=== PATIENT | male | born 1950 | race African-American/Black ===

== ENCOUNTER 2017-10-03 15:32 | Inpatient (IN) | payer MEDICARE, BC ==
[~2017-10-03 15:32] MED LIST: ATROPINE 0.5 MG/5 ML DISP.SYRIN.
[2017-10-03 15:58] LABS: ADD MAN DIFF? NO
[2017-10-03] MEDS ORDERED: HEPARIN 25,000UTS/500ML PREMIX 500 ML IV ×2 (15:58→16:00)
[2017-10-03] MEDS: NITROGLYCERIN PREMIX 250 ML IV (16:00)
[2017-10-03] MEDS ORDERED: NITROGLYCERIN SUBLINGUAL 0.4 MG BOTTLE OF 25. SL ×2 (16:00→18:00)
[2017-10-03] MEDS: fentaNYL PF VIAL 100 MCG/2 ML VIAL IV ×2 (16:00→16:30)
[2017-10-03] MEDS ORDERED: HEPARIN for IV BOLUS 10,000 UNIT/10 ML VIAL. IV ×2 (16:00→18:15)
[2017-10-03] MEDS: ONDANSETRON PF 4 MG/2 ML VIAL. IV (16:00)
[2017-10-03 16:03] LABS: BASO % 0 % (0-3); EOS % 0 % (0-3); HEMATOCRIT 50.7 % (39.0-53.0); HEMOGLOBIN 17.2 g/dL (13.0-17.5); LYMPH # 1.1 x10^3/uL (1.0-4.8); LYMPH % 12 % (24-48); MEAN CORPUSCULAR HEMOGLOBIN 33 pg (25-35); MEAN CORPUSCULAR HGB CONC 34 g/dL (31-37); MEAN CORPUSCULAR VOLUME 96 fL (79-100); MONO # 0.6 x10^3/uL (0.0-1.1); MONO % 7 % (0-9); NEUT # 7.6 x10^3uL (1.8-7.7); NEUT % 81 % (31-73); PLATELET COUNT 206 x10^3/uL (140-400); RED BLOOD COUNT 5.27 x10^6/uL (4.30-5.70); RED CELL DISTRIBUTION WIDTH 14.5 % (11.5-14.5); WHITE BLOOD COUNT 9.4 x10^3/uL (4.0-11.0)
[2017-10-03] MEDS: HEPARIN for IV BOLUS 10,000 UNIT/10 ML VIAL. IV ×2 (16:04→18:15)
[2017-10-03] MEDS: ASPIRIN CHEWABLE 81 MG TABLET. PO (16:04)
[2017-10-03] MEDS ORDERED: LIDOCAINE 1% Multi-Dose 20 ML VIAL. (16:06)
[2017-10-03] MEDS ORDERED: IODIXANOL 320 MG/ML 100 ML VIAL. ×2 (16:07→16:39)
[2017-10-03] MEDS ORDERED: LIDOCAINE 2% 20 ML VIAL. (16:07)
[2017-10-03 16:10] LABS: AGAP ISTAT 16 mmol/L (6-14); BUN ISTAT 15 mg/dL (8-26); CHLORIDE ISTAT 107 mmol/L (98-110); CREATININE ISTAT 1.3 mg/dL (0.5-1.4); GLUCOSE ISTAT 159 mg/dL (70-99); HEMATOCRIT ISTAT 48 % (37-52); HEMOGLOBIN ISTAT 16.3 g/dL (14-18); ION CA ISTAT 1.13 mmol/L (1.13-1.32); POTASSIUM ISTAT 4.1 mmol/L (3.5-5.0); SODIUM ISTAT 143 mmol/L (135-145); TOT CO2 ISTAT 25 mmol/L (23-32)
[2017-10-03] MEDS ORDERED: MIDAZOLAM HCL/PF 2 MG/2 ML VIAL. (16:12)
[2017-10-03] MEDS ORDERED: fentaNYL PF VIAL 100 MCG/2 ML VIAL (16:12)
[2017-10-03 16:20] LABS: ANION GAP 9 (6-14); BLOOD UREA NITROGEN 14 mg/dL (8-26); BUN/CREATININE RATIO 9 (6-20); CALCIUM 9.2 mg/dL (8.5-10.1); CARBON DIOXIDE 26 mmol/L (21-32); CHLORIDE 106 mmol/L (98-107); CREATININE 1.5 mg/dL (0.7-1.3); GFR 56.5; GLUCOSE 154 mg/dL (70-99); POTASSIUM 3.9 mmol/L (3.5-5.1); SODIUM 141 mmol/L (136-145)
[2017-10-03 16:26] LABS: ALBUMIN 3.7 g/dL (3.4-5.0); ALBUMIN/GLOBULIN RATIO 0.9 (1.0-1.7); ALK PHOS 93 U/L (46-116); ALT (SGPT) 38 U/L (16-63); AST (SGOT) 32 U/L (15-37); TOTAL BILIRUBIN 0.6 mg/dL (0.2-1.0)
[2017-10-03 16:27] LABS: TROPONINI 0.053 ng/mL (0.000-0.055)
[2017-10-03] MEDS ORDERED: BIVALIRUDIN 250 MG VIAL. IV (16:29)
[2017-10-03] MEDS: IODIXANOL 320 MG/ML 100 ML VIAL. IART (16:30)
[2017-10-03] MEDS: LIDOCAINE 2% 20 ML VIAL. IJ (16:30)
[2017-10-03] MEDS: MIDAZOLAM HCL/PF 2 MG/2 ML VIAL. IV (16:30)
[2017-10-03] MEDS: BIVALIRUDIN 250 MG VIAL. IV (16:45)
[2017-10-03] MEDS ORDERED: CONTRAST GIVEN MC (16:45)
[2017-10-03] MEDS: CLOPIDOGREL BISULFATE 75 MG TABLET PO (16:45)
[2017-10-03] MEDS ORDERED: NITROPRUSSIDE SODIUM 50 MG/2 ML VIAL IV (16:54)
[2017-10-03] MEDS: NOREPINEPHRIN PREMIX 250 ML IV (17:00)
[2017-10-03] MEDS ORDERED: HEPARIN for IV BOLUS 10,000 UNIT/10 ML VIAL. (17:04)
[2017-10-03] MEDS ORDERED: CLOPIDOGREL BISULFATE 75 MG TABLET (17:15)
[2017-10-03] MEDS: NITROPRUSSIDE 100MCG/ML SYRINGE. INT CORON (17:30)
[2017-10-03 17:37] LABS: INR 1.1 (0.8-1.1); PROTHROMBIN TIME PATIENT 13.4 SEC (11.7-14.0)
[2017-10-03 17:38] LABS: PARTIAL THROMBOPLASTIN TIME 27 SEC (24-38)
[2017-10-03] MEDS ORDERED: ACETAMINOPHEN 325 MG TABLET. PO (18:00)
[2017-10-03] MEDS: NITROGLYCERIN 200 MCG/2 ML SYRINGE FOR CATH/VASC LAB. IART (18:09)
[2017-10-03] MEDS: HEPARIN 25,000UTS/500ML PREMIX 500 ML IV (18:20)
[2017-10-03] MEDS: IV 1/2 NORMAL SALINE 1,000 ML IV (18:27)
[2017-10-03 18:59] LABS: HEMATOCRIT 50.5 % (39.0-53.0); HEMOGLOBIN 17.2 g/dL (13.0-17.5); MEAN CORPUSCULAR HEMOGLOBIN 33 pg (25-35); MEAN CORPUSCULAR HGB CONC 34 g/dL (31-37); MEAN CORPUSCULAR VOLUME 96 fL (79-100); PLATELET COUNT 190 x10^3/uL (140-400); RED BLOOD COUNT 5.24 x10^6/uL (4.30-5.70); RED CELL DISTRIBUTION WIDTH 14.5 % (11.5-14.5); WHITE BLOOD COUNT 16.1 x10^3/uL (4.0-11.0)
[2017-10-03] MEDS ORDERED: oxyCODONE/APAP 5/325 1 TAB TABLET PO ×2 (20:15)
[2017-10-03] MEDS ORDERED: NITROGLYCERIN PREMIX 250 ML IV (20:30)
[2017-10-03] MEDS: ATORVASTATIN CALCIUM 20 MG TABLET PO (21:35)
[2017-10-04 01:02] LABS: UNFRACTIONATED HEPARIN TESTING > 1.10 IU/mL (0.30-0.70)
[2017-10-04] MEDS: ONDANSETRON PF 4 MG/2 ML VIAL. IV (01:37)
[2017-10-04] MEDS: IV 1/2 NORMAL SALINE 1,000 ML IV ×2 (04:57→17:19)
[2017-10-04] MEDS: CLOPIDOGREL BISULFATE 75 MG TABLET PO (07:47)
[2017-10-04] MEDS: ASPIRIN ENTERIC COATED 325 MG TABLET.DR. PO (07:48)
[2017-10-04 08:19] LABS: HEMATOCRIT 46.1 % (39.0-53.0); HEMOGLOBIN 15.6 g/dL (13.0-17.5); MEAN CORPUSCULAR HEMOGLOBIN 33 pg (25-35); MEAN CORPUSCULAR HGB CONC 34 g/dL (31-37); MEAN CORPUSCULAR VOLUME 96 fL (79-100); PLATELET COUNT 153 x10^3/uL (140-400); RED CELL DISTRIBUTION WIDTH 14.5 % (11.5-14.5); WHITE BLOOD COUNT 11.9 x10^3/uL (4.0-11.0)
[2017-10-04 08:23] LABS: ANION GAP 9 (6-14); BLOOD UREA NITROGEN 11 mg/dL (8-26); CALCIUM 8.6 mg/dL (8.5-10.1); CARBON DIOXIDE 26 mmol/L (21-32); CHLORIDE 104 mmol/L (98-107); CREATININE 1.4 mg/dL (0.7-1.3); GFR 61.2; GLUCOSE 147 mg/dL (70-99); MAGNESIUM 1.6 mg/dL (1.8-2.4); POTASSIUM 4.1 mmol/L (3.5-5.1); SODIUM 139 mmol/L (136-145)
[2017-10-04 08:33] LABS: UNFRACTIONATED HEPARIN TESTING 0.49 IU/mL (0.30-0.70)
[2017-10-04 09:49] LABS: CHOLESTEROL 175 mg/dL (0-200); CHOLESTEROL/HDL RATIO 3.4; HDLC 51 mg/dL (40-60); LDLC 114 mg/dL (0-100); NON-HDL CHOLESTEROL 124 mg/dL (0-129); TRIGLYCERIDES 51 mg/dL (0-150); VLDLC 10 mg/dL (0-40)
[2017-10-04] MEDS: MAGNESIUM SULFATE 2GM 50 ML IV (10:09)
[2017-10-04] MEDS: FLU VACC QS2017-18 (36MOS+)/PF 0.5 ML SYRINGE. VAX IM (12:36)
[2017-10-04] MEDS: PNEUMOC CONJ VACC 23-VALENT 0.5 ML VIAL. VAX IM (13:07)
[2017-10-04 15:04] LABS: UNFRACTIONATED HEPARIN TESTING 0.31 IU/mL (0.30-0.70)
[2017-10-04 16:19] LABS: MRSA BY PCR Negative (Negative)
[2017-10-04] MEDS: HEPARIN 25,000UTS/500ML PREMIX 500 ML IV (17:18)
[2017-10-04] MEDS: ATORVASTATIN CALCIUM 20 MG TABLET PO (21:04)
[2017-10-05 06:32] LABS: HEMATOCRIT 45.4 % (39.0-53.0); HEMOGLOBIN 15.2 g/dL (13.0-17.5); MEAN CORPUSCULAR HEMOGLOBIN 32 pg (25-35); MEAN CORPUSCULAR HGB CONC 34 g/dL (31-37); MEAN CORPUSCULAR VOLUME 97 fL (79-100); PLATELET COUNT 131 x10^3/uL (140-400); RED CELL DISTRIBUTION WIDTH 14.3 % (11.5-14.5); WHITE BLOOD COUNT 9.7 x10^3/uL (4.0-11.0)
[2017-10-05 06:42] LABS: ANION GAP 7 (6-14); BLOOD UREA NITROGEN 9 mg/dL (8-26); CALCIUM 8.6 mg/dL (8.5-10.1); CARBON DIOXIDE 26 mmol/L (21-32); CHLORIDE 106 mmol/L (98-107); CREATININE 1.2 mg/dL (0.7-1.3); GFR 73.1; GLUCOSE 121 mg/dL (70-99); MAGNESIUM 2.1 mg/dL (1.8-2.4); POTASSIUM 3.8 mmol/L (3.5-5.1); SODIUM 139 mmol/L (136-145)
[2017-10-05 07:13] LABS: TROPONIN BY ISTAT 0.03 ng/ml (<0.08)
[2017-10-05] MEDS ORDERED: LIDOCAINE 2% 20 ML VIAL. (07:33)
[2017-10-05] MEDS ORDERED: IODIXANOL 320 MG/ML 100 ML VIAL. (07:33)
[2017-10-05] MEDS: ASPIRIN ENTERIC COATED 325 MG TABLET.DR. PO (08:27)
[2017-10-05] MEDS: CLOPIDOGREL BISULFATE 75 MG TABLET PO (08:27)
[2017-10-05] MEDS: IV 1/2 NORMAL SALINE 1,000 ML IV ×3 (08:44→23:11)
[2017-10-05] MEDS ORDERED: INFLUENZA VAX SCREEN BY RX. MC (09:00)
[2017-10-05] MEDS ORDERED: PNEUMOCOCCAL VAX SCREEN BY RX. MC (09:00)
[2017-10-05] MEDS: ANTI-COAG MONITOR BY PHARMACY. MC (09:52)
[2017-10-05] MEDS ORDERED: MIDAZOLAM HCL/PF 2 MG/2 ML VIAL. (11:11)
[2017-10-05] MEDS ORDERED: BIVALIRUDIN 250 MG VIAL. IV (11:12)
[2017-10-05] MEDS: MIDAZOLAM HCL/PF 2 MG/2 ML VIAL. IV (11:15)
[2017-10-05] MEDS: IODIXANOL 320 MG/ML 100 ML VIAL. IART (11:15)
[2017-10-05] MEDS: BIVALIRUDIN 250 MG VIAL. IV (11:15)
[2017-10-05] MEDS: fentaNYL PF VIAL 100 MCG/2 ML VIAL IV (11:15)
[2017-10-05] MEDS: LIDOCAINE 2% 20 ML VIAL. IJ (11:15)
[2017-10-05] MEDS ORDERED: ACETAMINOPHEN 325 MG TABLET. PO (13:15)
[2017-10-05] MEDS ORDERED: NITROGLYCERIN SUBLINGUAL 0.4 MG BOTTLE OF 25. SL (13:15)
[2017-10-05] MEDS: ATORVASTATIN CALCIUM 20 MG TABLET PO (21:06)
[2017-10-06] MEDS: IV 1/2 NORMAL SALINE 1,000 ML IV (02:21)
[2017-10-06 08:42] LABS: HEMATOCRIT 42.6 % (39.0-53.0); HEMOGLOBIN 14.4 g/dL (13.0-17.5); MEAN CORPUSCULAR HEMOGLOBIN 32 pg (25-35); MEAN CORPUSCULAR HGB CONC 34 g/dL (31-37); MEAN CORPUSCULAR VOLUME 96 fL (79-100); PLATELET COUNT 114 x10^3/uL (140-400); RED BLOOD COUNT 4.45 x10^6/uL (4.30-5.70); RED CELL DISTRIBUTION WIDTH 14.4 % (11.5-14.5); WHITE BLOOD COUNT 9.1 x10^3/uL (4.0-11.0)
[2017-10-06] MEDS: METOPROLOL SUCC 24HR ER 25 MG TAB.ER.24H. PO (09:00)
[2017-10-06] MEDS: ASPIRIN ENTERIC COATED 325 MG TABLET.DR. PO (09:17)
[2017-10-06] MEDS: CLOPIDOGREL BISULFATE 75 MG TABLET PO (09:17)
[2017-10-06 10:55] LABS: ANION GAP 8 (6-14); BLOOD UREA NITROGEN 9 mg/dL (8-26); CALCIUM 8.5 mg/dL (8.5-10.1); CARBON DIOXIDE 26 mmol/L (21-32); CHLORIDE 106 mmol/L (98-107); CREATININE 1.3 mg/dL (0.7-1.3); GFR 66.6; GLUCOSE 111 mg/dL (70-99); POTASSIUM 3.9 mmol/L (3.5-5.1); SODIUM 140 mmol/L (136-145)
[2017-10-06 11:43] LABS: MAGNESIUM 2.2 mg/dL (1.8-2.4)
[2017-10-06] MEDS: ATORVASTATIN CALCIUM 20 MG TABLET PO (20:27)
[2017-10-07 05:42] LABS: HEMATOCRIT 40.3 % (39.0-53.0); HEMOGLOBIN 13.9 g/dL (13.0-17.5); MEAN CORPUSCULAR HEMOGLOBIN 33 pg (25-35); MEAN CORPUSCULAR HGB CONC 35 g/dL (31-37); MEAN CORPUSCULAR VOLUME 96 fL (79-100); PLATELET COUNT 120 x10^3/uL (140-400); RED BLOOD COUNT 4.22 x10^6/uL (4.30-5.70); RED CELL DISTRIBUTION WIDTH 14.2 % (11.5-14.5); WHITE BLOOD COUNT 8.2 x10^3/uL (4.0-11.0)
[2017-10-07 06:24] LABS: ALBUMIN 2.7 g/dL (3.4-5.0); ALBUMIN/GLOBULIN RATIO 0.7 (1.0-1.7); ALK PHOS 68 U/L (46-116); ALT (SGPT) 35 U/L (16-63); ANION GAP 8 (6-14); AST (SGOT) 80 U/L (15-37); BLOOD UREA NITROGEN 13 mg/dL (8-26); BUN/CREATININE RATIO 11 (6-20); CALCIUM 8.4 mg/dL (8.5-10.1); CARBON DIOXIDE 24 mmol/L (21-32); CHLORIDE 108 mmol/L (98-107); CREATININE 1.2 mg/dL (0.7-1.3); GFR 73.1; GLUCOSE 96 mg/dL (70-99); POTASSIUM 3.9 mmol/L (3.5-5.1); SODIUM 140 mmol/L (136-145); TOTAL BILIRUBIN 1.2 mg/dL (0.2-1.0); TOTAL PROTEIN 6.4 g/dL (6.4-8.2)
[2017-10-07] MEDS: CLOPIDOGREL BISULFATE 75 MG TABLET PO (08:50)
[2017-10-07] MEDS: ASPIRIN ENTERIC COATED 325 MG TABLET.DR. PO (08:50)
[2017-10-09 00:10] LABS: HCV ANTIBODY 0.1 s/co ratio (0.0-0.9); HEP A IGM ABDY Negative (Negative); HEP B SURFACE AG Negative (Negative)
== END 2017-10-07 14:41 | disposition home or self-care (01) | DRG 270 ==
LOC: 2 SOUTH 10-06 12:05 → ER 15:32 → 1 WEST ICU 16:00
PROC: 027035Z Dilation of Coronary Artery, One Artery with Two Drug-eluting Intraluminal Devices, Percutaneous Approach (ICD-10-PCS; principal; 2017-10-03)
PROC: 5A02210 Assistance with Cardiac Output using Balloon Pump, Continuous (ICD-10-PCS; 2017-10-03)
PROC: 4A023N7 Measurement of Cardiac Sampling and Pressure, Left Heart, Percutaneous Approach (ICD-10-PCS; 2017-10-03)
PROC: B2111ZZ Fluoroscopy of Multiple Coronary Arteries using Low Osmolar Contrast (ICD-10-PCS; 2017-10-03)
PROC: 027034Z Dilation of Coronary Artery, One Artery with Drug-eluting Intraluminal Device, Percutaneous Approach (ICD-10-PCS; 2017-10-03)
DX: I21.19 ST elevation (STEMI) myocardial infarction involving other coronary artery of inferior wall (principal); R57.0 Cardiogenic shock; D69.59 Other secondary thrombocytopenia; E78.00 Pure hypercholesterolemia, unspecified; E78.5 Hyperlipidemia, unspecified; E83.42 Hypomagnesemia; I10 Essential (primary) hypertension; I25.10 Atherosclerotic heart disease of native coronary artery without angina pectoris; I49.3 Ventricular premature depolarization; M19.90 Unspecified osteoarthritis, unspecified site; Z82.49 Family history of ischemic heart disease and other diseases of the circulatory system; Z95.5 Presence of coronary angioplasty implant and graft; Z98.49 Cataract extraction status, unspecified eye
CPT/HCPCS: 33967; 33968; 36415; 71045; 76700; 80047; 80048; 80053; 80061; 80074; 83735; 84132; 84484; 85025; 85027; 85520; 85610; 85730; 87641; 90686; 90732; 92928; 92941; 93005; 93306; 93454; 93571; 99152; 99153; 99285; 99285-25; C1713; C1725; C1769; C1771; C1874; C1887; C1892; G0269; J0461; J0583; J1265; J1644; J2250; J2405; J3010; J3475; J3490

== ENCOUNTER → 2019-09-02 | Outpatient (CLI) | payer MEDICARE, BC ==
[2017-10-07 11:31] VITALS: BP 104/71
[~2019-09-02] MED LIST changes: +ASPI-482 PO; +ATOR20TA58 PO; -ATROPINE 0.5 MG/5 ML DISP.SYRIN.; +CLOP75TA PO; +REGADENOSON 0.4 MG/5 ML DISP.SYRIN. IV ONE
--- NOTE | 2019-09-02 12:09 | RAD ---
MR#: [id number] Date of Study: 09/02/2019 Ordering Physician: ZANDRA GRIDER, Referring Physician: RAGHU BALDERAS Tech: RT Cj Huber) (N) APPROVED REPORT Test Type: Pharmacological Stress Nurse/Tech: Sharmila Modi RN Test Indications: CAD Cardiac History: Hypertension,2 stents about 4 years ago Medications: See Electronic Medical Record Medical History: See Electronic Medical Record Resting ECG: SR with PVCs and PACs Resting Heart Rate: 70 bpm Resting Blood Pressure: 136/92mmHg Pretest Chest Pain: No chest pain Nurse/Tech Notes S1,S2 and lungs clear to auscultation. Consent: The procedure was explained to the patient in lay terms. Informed consent was witnessed. Abdulkadir eout was entered into [employer]. History and Stress Test performed by RT Cj Huber) (N) Pharm. Details Pharmacologic stress testing was performed using 0.4mg per 5ml of regadenoson given intravenously ove r 7-10 seconds. Stress Symptoms No chest pain or symptoms. POST EXERCISE Reason for Termination: Infusion complete Target HR: No Max HR: 103 bpm Max Blood Pressure: 152/83mmHg Blood Pressure response to exercise: Normal blood pressure response during stress. Heart Rate response to exercise: WNL Chest Pain: No. Arrhythmia: Yes. PVCs and PACs ST Change: No. INTERPRETATION Stress EKG Conclusion: Baseline EKG showed sinus rhythm. Non-diagnostic changes at peak stress. No arrhythmias. Imaging Protocol IMAGE PROTOCOL: Rest Tc-99m/stress Tc-99m 1 day Rest: Stress: Viability: Radiopharm.Tc99m [id number] Sestamibi Dose10.5mCi 32mCi Duration 15min. 10min. Img Date 09/02/2019 09/02/2019 Inj-Img [id number]. 60min. Rest Admin Site:IV - Right AntecubitalAdministrator:ERIC Salmeron (Ashtyn)(N) Stress Admin Site: IV - Right AntecubitalAdministrator: RT Cj Huber)(N) STRESS DATA End Diast. Vol.91.0mlAv. Heart Rate79.0bpm End Syst. Vol.26.0mlCO Index BSA0.0L/min Myocardial Nqul078.0gEject. Hdiqrath29.0% Stress Rates Pk. Fill Rate2.65EDV/secLVtime Pk. Fill 147.81msec Pk. Empty Rate4.19ESV/secLVtime Pk. Cxpnz500.03msec 1/3 Pk. Fill1.47EDV/sec Stress Scores Regional WT2.00Summed WT6.00 Regional WM0.00Summed WM1.00 LV Perfusion Scintigraphic images showed small fixed defect involving the anterior wall consistent with previous m yocardial infarction without any reversibility. Wall Motion Normal left ventricle systolic function with ejection fraction At 71%. LV Perf. Quant 17 Seg. SSS2.00 17 Seg. SRS12.00 17 Seg. SDS0.00 Stress Defect Extent (% LAD)18.80Rest Defect Extent (% LAD)38.10Rev. Defect Extent (% LAD)0.00 Stress Defect Extent (% LCX) 0.00Rest Defect Extent (% LCX)0.00Rev. Defect Extent (% LCX)0.00 Stress Defect Extent (% RCA)0.00Rest Defect Extent (% RCA)34.40Rev. Defect Extent (% RCA)0.00 Stress Defect Extent (% CANDIE)7.00Rest Defect Extent (% CANDIE)24.10Rev. Defect Extent (% CANDIE)0.00 Conclusion 1. Regadenoson cardioisotope stress test showed small anterior wall infarct without any ischemia. 2. Normal left ventricular systolic function with ejection fraction calculated at 71%. 3. Low risk for cardiac events. Signed by : Ramirez Dash, Electronically Approved : 09/02/2019 12:08:37
== END | disposition home or self-care (01) ==
LOC: NM 08:53
PROVIDERS: ATTEND Nurse Practitioner Gerontology
DX: Z03.89 Encounter for observation for other suspected diseases and conditions ruled out (principal); I21.09 ST elevation (STEMI) myocardial infarction involving other coronary artery of anterior wall
CPT/HCPCS: 78452; 93017; A9500; J2785

== ENCOUNTER 2020-04-12 09:52 | Inpatient (IN) | payer MEDICARE, BC ==
[~2020-04-12] VITALS: Ht 190.5 cm; Wt 84.3 kg
[2020-04-12] VITALS (13 sets, daily range): BP systolic 90–109; BP diastolic 70–84
[~2020-04-12 09:52] MED LIST changes: -REGADENOSON 0.4 MG/5 ML DISP.SYRIN. IV ONE
[2020-04-12] MEDS ORDERED: HEPARIN for IV BOLUS 10,000 UNIT/10 ML VIAL. ONE ×2 (10:15→11:56)
[2020-04-12] MEDS ORDERED: HEPARIN for IV BOLUS 10,000 UNIT/10 ML VIAL. IV ONE (10:15)
[2020-04-12] MEDS ORDERED: ASPIRIN 325 MG TABLET PO ONE (10:15)
[2020-04-12 10:18] LABS: BASO % 0 % (0-3); EOS % 0 % (0-3); HEMATOCRIT 49.3 % (39.0-53.0); HEMOGLOBIN 16.7 g/dL (13.0-17.5); LYMPH # 0.7 x10^3/uL (1.0-4.8); LYMPH % 5 % (24-48); MEAN CORPUSCULAR HEMOGLOBIN 33 pg (25-35); MEAN CORPUSCULAR HGB CONC 34 g/dL (31-37); MEAN CORPUSCULAR VOLUME 96 fL (79-100); MONO # 1.5 x10^3/uL (0.0-1.1); MONO % 11 % (0-9); NEUT # 11.3 x10^3/uL (1.8-7.7); NEUT % 84 % (31-73); PLATELET COUNT 149 x10^3/uL (140-400); RED BLOOD COUNT 5.13 x10^6/uL (4.30-5.70); RED CELL DISTRIBUTION WIDTH 14.8 % (11.5-14.5); WHITE BLOOD COUNT 13.5 x10^3/uL (4.0-11.0)
--- NOTE | 2020-04-12 10:18 | PHYS DOC ---
Past Medical History Past Medical History: CAD, High Cholesterol, Hypertension, NC Past Surgical History: Other Additional Past Surgical Histo: cardiac stents Smoking Status: Never Smoker Alcohol Use: None Drug Use: None General Adult EDM: Chief Complaint: CHEST PAIN HPI: HPI: Patient is a 69-year-old male presenting with abrupt left-sided chest pain that started at 11:00 yesterday while mowing his lawn. Patient has a history of hypertension, CAD, hyperlipidemia, and has had 2 coronary artery stents placed in the past. Patient describes the pain as nagging but is mild in nature compared to his initial pain yesterday, the pain radiates into the left shoulder and worse with exertion.. Patient denies any loss of consciousness, abdominal pain, headache, blurry vision, muscle weakness, or sensory changes. Patient denies current tobacco or alcohol use. Denies trauma. Review of Systems: Review of Systems: Constitutional: Denies fever or chills Eyes: Denies redness or eye pain HENT: Denies nasal congestion or sore throat Respiratory: Denies cough or shortness of breath Cardiovascular: Endorses chest pain, denies palpitations GI: Denies abdominal pain, nausea, or vomiting : Denies dysuria or hematuria Musculoskeletal: Denies back pain; reports left shoulder pain Integument: Denies rash or skin lesions; reports diaphoresis with chest pain Neurologic: Denies headache, focal weakness or sensory changes Complete systems were reviewed and found to be within normal limits, except as documented in this note. Heart Score: HEART Score for Chest Pain: HEART Score for Chest Pain Response (Comments) Value History Highly Suspicious 2 ECG Nonspecific Repolarizatio 1 Age > 65 2 Risk Factors >3 Risk Factors or Hx CAD 2 Troponin >3 x Normal Limit 2 Total 9 Risk Factors: Risk Factors: DM, Current or recent (<one month) smoker, HTN, HLP, family history of CAD, obesity. Risk Scores: Score 0 - 3: 2.5% MACE over next 6 weeks - Discharge Home Score 4 - 6: 20.3% MACE over next 6 weeks - Admit for Clinical Observation Score 7 - 10: 72.7% MACE over next 6 weeks - Early Invasive Strategies Current Medications: Current Medications Medications (Trade) Dose Ordered Sig/Torsten Start Time Stop Time Status Last Admin Dose Admin Aspirin (Denisse Aspirin) 325 mg 1X ONCE 04/12/20 10:15 04/12/20 10:16 Heparin Sodium (Porcine) (Heparin Sodium) 10,000 unit STK-MED ONCE 04/12/20 10:15 04/12/20 10:15 DC Allergies: Allergies: Allergies Coded Allergies Type Severity Reaction Last Updated Verified No Known Drug Allergies 05/06/14 No Physical Exam: PE: Constitutional: Well developed, well nourished, no acute distress, non-toxic appearance HENT: Normocephalic, atraumatic Eyes: Conjunctiva normal, no discharge, left eye corneal opacity Neck: Normal range of motion, no tenderness, supple Lungs & Thorax: Bilateral breath sounds clear to auscultation, no wheezing Cardiovascular: Normal rate, regular rhythm, no murmurs, +2 pulses in upper and lower extremities Abdomen: Soft, no tenderness Skin: Warm, dry, no erythema, no rash Back: No tenderness, no CVA tenderness Extremities: No tenderness, ROM intact, no edema Neurologic: Alert and oriented X 3, no focal deficits noted Psychologic: Affect normal, judgment normal Current Patient Data: Vital Signs: Vital Signs Date Time Temp Pulse Resp B/P (MAP) Pulse Ox O2 Delivery O2 Flow Rate FiO2 04/12/20 09:59 99.1 88 16 121/98 (106) 97 Room Air 99.1 EKG: EKG: @1000 NSR at 95bpm, minimal ST elevation to V2-V4 without reciprocal depression, QRS 80ms, QT/QTc 324/410ms, compared to prior EKG per [employer] review from 10/03/17 with significant change from prior concerning for ischemic event Radiology/Procedures: Radiology/Procedures: PROCEDURE: CHEST AP ONLY CHEST AP ONLY History: Chest pain Comparison: 10/03/2017 Findings: Single view of the chest is submitted. There is no infiltrate, pneumothorax, or effusion. The pericardial cardiac silhouette is within normal limits in size. Impression: 1. There is no radiographic evidence of acute cardiopulmonary disease. Electronically signed by: Enmanuel Noonan MD (04/12/2020 11:20 AM) [id number] Course & Med Decision Making: Course & Med Decision Making Pertinent Labs and Imaging studies reviewed. (See chart for details) Patient with significant cardiac risk factors presents with report of chest pain with diaphoresis and radiation to left shoulder that started yesterday with exertion. Patient presents today because he still has a "nagging "sensation. Denies actual pain at this time. EKG with some mild ST elevations noted in V1 through V4 without reciprocal depressions. Compared to prior EKG with significant change. Concern for ischemic changes. Aspirin provided. Discussed EKGs with Dr. Dash (cardiology) who reports will plan for cardiac cath today for further evaluation given EKG changes. Labs obtained and posted to chart. Troponin significantly elevated. CXR without acute process. Patient requiring admission for further evaluation and treatment. Discussed with Dr. Mckeon (hospitalist) who is in agreement with admission. Discussed findings and plan with patient and family, who acknowledge understanding and agreement. Dragon Disclaimer: Dragon Disclaimer: This electronic medical record was generated, in whole or in part, using a voice recognition dictation system. Departure Departure Impression: Primary Impression: NSTEMI (non-ST elevated myocardial infarction) Disposition: 09 ADMITTED INPATIENT Admitting Physician: IWONA (Linda) Condition: GUARDED Referrals: ZANDRA GRIDER APRN (PCP) Justicifation of Admission Dx: Justifications for Admission: Justification of Admission Dx: Yes NC: Acute NSTEMI Critical Care Time Critical care time was 30 minutes which includes time at bedside, spent in discussion of patient's care with specialists and/or family members, with interpretation of laboratory and/or radiological studies and is exclusive of procedures. LARON LOPEZ DO Apr 12, 2020 10:18
[2020-04-12 10:56] LABS: PROTHROMBIN TIME PATIENT 15.6 SEC (11.7-14.0)
[2020-04-12 11:08] LABS: CALCIUM 8.9 mg/dL (8.5-10.1); CREATININE 1.3 mg/dL (0.7-1.3); GFR 66.2; POTASSIUM 4.1 mmol/L (3.5-5.1)
[2020-04-12 11:19] LABS: ALBUMIN 3.8 g/dL (3.4-5.0); TOTAL BILIRUBIN 1.7 mg/dL (0.2-1.0); TOTAL PROTEIN 7.8 g/dL (6.4-8.2)
--- NOTE | 2020-04-12 11:23 | RAD ---
CHEST AP ONLY History: Chest pain Comparison: 10/03/2017 Findings: Single view of the chest is submitted. There is no infiltrate, pneumothorax, or effusion. The pericardial cardiac silhouette is within normal limits in size. Impression: 1. There is no radiographic evidence of acute cardiopulmonary disease. Electronically signed by: Enmanuel Noonan MD (04/12/2020 11:20 AM) [id number]
[2020-04-12] MEDS ORDERED: fentaNYL PF VIAL 100 MCG/2 ML VIAL IV ONE ×2 (11:30→12:30)
[2020-04-12] MEDS ORDERED: IODIXANOL 320 MG/ML 100 ML VIAL. ONE ×2 (11:33→12:51)
[2020-04-12] MEDS ORDERED: LIDOCAINE 1% PF 2 ML VIAL. ONE (11:34)
[2020-04-12] MEDS ORDERED: HEPARIN for ARTERIAL LINE 0 ML ONE (11:34)
--- NOTE | 2020-04-12 11:54 | PDOC ---
MODERATE SEDATION ASSESSMENT RISKS/ALTERNATIVES Risks/Alternatives Risks and alternatives of this type of sedation and procedure discussed with: RISK/ALTERNATIVES: Patient H & P ON CHART H & P H & P on chart and reviewed for co-morbid conditions and appropriate labs. H&P ON CHART: Yes STATUS PREG STATUS ASSESSED: N/A MEDS/ALLERGIES REVIEWED Meds/Allergies Reviewed Medications and Allergies including time and route of recently administered narcotics and sedatives. MEDS/ALLERGIES REVIEWED: Yes ASA RATING ASA RATING: III AIRWAY ASSESSMENT Airway Assessment Airway patency, oral function limitations, presence of caps, crowns, dentures, partials, and ability to extend neck assessed. AIRWAY ASSESSMENT: Yes MALLAMPATI SCORE MALLAMPATI SCORE: II PRE-SEDATION ASSESSMENT PRE-SEDATION ASSESSMENT: Yes GELA CRUZ MD Apr 12, 2020 11:54
[2020-04-12] MEDS ORDERED: fentaNYL PF VIAL 100 MCG/2 ML VIAL ONE (11:55)
--- NOTE | 2020-04-12 11:55 | PDOC2 ---
CONSULT Date of Consult Date of Consult DATE: 04/12/20 TIME: 11:54 Reason for Consult Reason for Consult: Acute myocardial infarction Referring Physician Referring Physician: Dr. Sharif Identification/Chief Complaint Chief Complaint Chest pain Source Source: Chart review, Patient History of Present Illness Reason for Visit: 69-year-old male with history of coronary disease s/p PCI/BENITA to LAD and RCA in 2018 without regular cardiology follow-up since then apparently was moaning his lawn yesterday when he started having retrosternal chest discomfort associated with diaphoresis. He came back inside the house to rest and the pain got better. Throughout the evening his pain waxed and waned, however he did not present to ED till this morning. He stated the chest pain resolved but he continues to have left shoulder pain worse with exertion. He denied any orthopnea/PND, palpitations or syncope. Past Medical History Cardiovascular: HTN, Hyperlipidemia Pulmonary: No pertinent hx GI: No pertinent hx Heme/Onc: No pertinent hx Hepatobiliary: No pertinent hx Psych: No pertinent hx Musculoskeletal: Osteoarthritis Rheumatologic: No pertinent hx Infectious disease: No pertinent hx Renal/: No pertinent hx Endocrine: No pertinent hx Past Surgical History Past Surgical History: Cataract Removal, Tonsillectomy, Other Family History Family History: Hypertension Social History ALCOHOL: none Drugs: None Current Problem List Problem List Problems Medical Problems: (1) NSTEMI (non-ST elevated myocardial infarction) Status: Acute Current Medications Current Medications Current Medications Aspirin (Denisse Aspirin) 325 mg 1X ONCE PO Last administered on 04/12/20at 10:16; Start 04/12/20 at 10:15; Stop 04/12/20 at 10:16; Status DC Heparin Sodium (Porcine) (Heparin Sodium) 4,000 unit 1X ONCE IV Last admini stered on 04/12/20at 10:19; Start 04/12/20 at 10:15; Stop 04/12/20 at 10:19; Status DC Heparin Sodium (Porcine) (Heparin Sodium) 10,000 unit STK-MED ONCE .ROUTE ; Start 04/12/20 at 10:15; Stop 04/12/20 at 10:15; Status DC Fentanyl Citrate (Fentanyl 2ml Vial) 50 mcg 1X ONCE IV ; Start 04/12/20 at 11:30; Stop 04/12/20 at 11:31; Status DC Iodixanol (Visipaque 320) 100 ml STK-MED ONCE .ROUTE ; Start 04/12/20 at 11:33; Stop 04/12/20 at 11:34; Status DC Lidocaine HCl (Xylocaine-Mpf 1% 2ml Vial) 2 ml STK-MED ONCE .ROUTE ; Start 04/12/20 at 11:34; Stop 04/12/20 at 11:34; Status DC Heparin Sodium/ Sodium Chloride 0 ml @ As Directed STK-MED ONCE .ROUTE ; Start 04/12/20 at 11:34; Stop 04/12/20 at 11:34; Status DC Ondansetron HCl (Zofran) 4 mg PRN Q8HRS PRN IV NAUSEA/VOMITING; Start 04/12/20 at 12:00; Stop 04/13/20 at 11:59 Fentanyl Citrate (Fentanyl 2ml Vial) 50 mcg Q2HR PRN IV PAIN; Start 04/12/20 at 12:00; Stop 04/13/20 at 11:59 Active Scripts Active Aspir 81 (Aspirin) 81 Mg Tablet.dr 1 Tab PO DAILY Clopidogrel (Clopidogrel Bisulfate) 75 Mg Tablet 75 Mg PO [id number] 30 Days Atorvastatin Calcium 20 Mg Tablet 20 Mg PO QHS 30 Days Allergies Allergies: Coded Allergies: No Known Drug Allergies (Unverified , 05/06/14) ROS PSYCHOLOGICAL ROS: No: Hallucinations Eyes: No Loss of vision HEENT: No: Epistaxis Respiratory: No: Hemoptysis, Shortness of breath Cardiovascular: yes Chest Pain Gastrointestinal: No Vomiting Genitourinary: No Hematuria Neurological: No Seizures Skin: No Rash Physical Exam General: Alert, No acute distress HEENT: Atraumatic Lungs: Clear to auscultation Heart: Regular rate Abdomen: Soft Extremities: No edema Neuro: Normal speech Psych/Mental Status: Mood NL Vitals VITALS Vital Signs Date Time Temp Pulse Resp B/P (MAP) Pulse Ox O2 Delivery O2 Flow Rate FiO2 04/12/20 09:59 99.1 88 16 121/98 (106) 97 Room Air 99.1 Labs Labs Laboratory Tests Test 04/12/20 10:08 04/12/20 10:30 White Blood Count 13.5 x10^3/uL (4.0-11.0) Red Blood Count 5.13 x10^6/uL (4.30-5.70) Hemoglobin 16.7 g/dL (13.0-17.5) Hematocrit 49.3 % (39.0-53.0) Mean Corpuscular Volume 96 fL (79-100) Mean Corpuscular Hemoglobin 33 pg (25-35) Mean Corpuscular Hemoglobin Concent 34 g/dL (31-37) Red Cell Distribution Width 14.8 % (11.5-14.5) Platelet Count 149 x10^3/uL (140-400) Neutrophils (%) (Auto) 84 % (31-73) Lymphocytes (%) (Auto) 5 % (24-48) Monocytes (%) (Auto) 11 % (0-9) Eosinophils (%) (Auto) 0 % (0-3) Basophils (%) (Auto) 0 % (0-3) Neutrophils # (Auto) 11.3 x10^3/uL (1.8-7.7) Lymphocytes # (Auto) 0.7 x10^3/uL (1.0-4.8) Monocytes # (Auto) 1.5 x10^3/uL (0.0-1.1) Eosinophils # (Auto) 0.0 x10^3/uL (0.0-0.7) Basophils # (Auto) 0.0 x10^3/uL (0.0-0.2) Prothrombin Time 15.6 SEC (11.7-14.0) Prothromb Time International Ratio 1.3 (0.8-1.1) Activated Partial Thromboplast Time 131 SEC (24-38) Sodium Level 138 mmol/L (136-145) Potassium Level 4.1 mmol/L (3.5-5.1) Chloride Level 104 mmol/L (98-107) Carbon Dioxide Level 25 mmol/L (21-32) Anion Gap 9 (6-14) Blood Urea Nitrogen 12 mg/dL (8-26) Creatinine 1.3 mg/dL (0.7-1.3) Estimated GFR (Cockcroft-Gault) 66.2 BUN/Creatinine Ratio 9 (6-20) Glucose Level 129 mg/dL (70-99) Calcium Level 8.9 mg/dL (8.5-10.1) Magnesium Level 2.0 mg/dL (1.8-2.4) Total Bilirubin 1.7 mg/dL (0.2-1.0) Aspartate Amino Transf (AST/SGOT) 890 U/L (15-37) Alanine Aminotransferase (ALT/SGPT) 80 U/L (16-63) Alkaline Phosphatase 97 U/L (46-116) Troponin I Quantitative 193.780 ng/mL (0.000-0.055) EA-Vrp-J-Type Natriuretic Peptide 3192 pg/mL (0-124) Total Protein 7.8 g/dL (6.4-8.2) Albumin 3.8 g/dL (3.4-5.0) Albumin/Globulin Ratio 1.0 (1.0-1.7) Lipase 43 U/L (73-393) Laboratory Tests Test 04/12/20 10:08 04/12/20 10:30 White Blood Count 13.5 x10^3/uL (4.0-11.0) Red Blood Count 5.13 x10^6/uL (4.30-5.70) Hemoglobin 16.7 g/dL (13.0-17.5) Hematocrit 49.3 % (39.0-53.0) Mean Corpuscular Volume 96 fL (79-100) Mean Corpuscular Hemoglobin 33 pg (25-35) Mean Corpuscular Hemoglobin Concent 34 g/dL (31-37) Red Cell Distribution Width 14.8 % (11.5-14.5) Platelet Count 149 x10^3/uL (140-400) Neutrophils (%) (Auto) 84 % (31-73) Lymphocytes (%) (Auto) 5 % (24-48) Monocytes (%) (Auto) 11 % (0-9) Eosinophils (%) (Auto) 0 % (0-3) Basophils (%) (Auto) 0 % (0-3) Neutrophils # (Auto) 11.3 x10^3/uL (1.8-7.7) Lymphocytes # (Auto) 0.7 x10^3/uL (1.0-4.8) Monocytes # (Auto) 1.5 x10^3/uL (0.0-1.1) Eosinophils # (Auto) 0.0 x10^3/uL (0.0-0.7) Basophils # (Auto) 0.0 x10^3/uL (0.0-0.2) Prothrombin Time 15.6 SEC (11.7-14.0) Prothromb Time International Ratio 1.3 (0.8-1.1) Activated Partial Thromboplast Time 131 SEC (24-38) Sodium Level 138 mmol/L (136-145) Potassium Level 4.1 mmol/L (3.5-5.1) Chloride Level 104 mmol/L (98-107) Carbon Dioxide Level 25 mmol/L (21-32) Anion Gap 9 (6-14) Blood Urea Nitrogen 12 mg/dL (8-26) Creatinine 1.3 mg/dL (0.7-1.3) Estimated GFR (Cockcroft-Gault) 66.2 BUN/Creatinine Ratio 9 (6-20) Glucose Level 129 mg/dL (70-99) Calcium Level 8.9 mg/dL (8.5-10.1) Magnesium Level 2.0 mg/dL (1.8-2.4) Total Bilirubin 1.7 mg/dL (0.2-1.0) Aspartate Amino Transf (AST/SGOT) 890 U/L (15-37) Alanine Aminotransferase (ALT/SGPT) 80 U/L (16-63) Alkaline Phosphatase 97 U/L (46-116) Troponin I Quantitative 193.780 ng/mL (0.000-0.055) FO-Rqw-L-Type Natriuretic Peptide 3192 pg/mL (0-124) Total Protein 7.8 g/dL (6.4-8.2) Albumin 3.8 g/dL (3.4-5.0) Albumin/Globulin Ratio 1.0 (1.0-1.7) Lipase 43 U/L (73-393) Assessment/Plan Assessment/Plan 1. Non-STEMI in a patient with known history of coronary disease s/p PCI/BENITA to LAD and RCA in the past. He is currently chest pain-free but he complained of left shoulder pain that could be anginal equivalent since this is worse with exertion. EKG showed Q waves anterior leads possibly from completed infarct. Troponin level significantly elevated. We will proceed with emergent cardiac catheterization and possible angioplasty. Risks and benefits were explained and he is agreeable. 2. Hypertension: Controlled 3. Hyperlipidemia: Continue statin therapy Thank you for your consultation GELA CRUZ MD Apr 12, 2020 11:55
[2020-04-12] MEDS ORDERED: VERAPAMIL 5 MG/2 ML VIAL. ONE (11:56)
[2020-04-12] MEDS ORDERED: MIDAZOLAM HCL/PF 2 MG/2 ML VIAL. ONE (11:56)
[2020-04-12] MEDS ORDERED: NITROGLYCERIN 200 MCG/2 ML SYRINGE FOR CATH/VASC LAB. ONE ×2 (11:58→13:01)
[2020-04-12] MEDS ORDERED: ONDANSETRON PF 4 MG/2 ML VIAL. IV PRN (12:00)
[2020-04-12] MEDS ORDERED: fentaNYL PF VIAL 100 MCG/2 ML VIAL IV PRN (12:00)
--- NOTE | 2020-04-12 12:00 | PDOC1 ---
History and Physical Date of Admission Date of Admission DATE: 04/12/20 TIME: 12:00 Identification/Chief Complaint Chief Complaint Chest pain Source Source: Patient History of Present Illness History of Present Illness Mr Goodrich is a 69yo M w/ PMHx of CAD s/p BENITA x2 2018, HLD, HTN who presents to ED c/o chest pain that has been intermittent over the past 24 hours prior to presentation. After mowing his lawn at approximately 11:00am on 04/11/2020 he noted sudden substernal sharp chest pain 03/22 that radiated to his back. He had associated diaphoresis and nausea which initially improved with rest. The pain has returned intermittently in a dull fashion since then every few hours and he awoke today with the same pain. He does not smoke or drink alcohol. CXR in ED showed no acute abnormalities. EKG concerning for ST elevations in V2, V3, and V4. Troponin 193. AST notably 890, ALT 80, Alkaline phosphatase 97, Bilirubin 1.7. 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 Past Medical History Cardiovascular: CAD (S/p LAD and RCA stent 2018), HTN, Hyperlipidemia Pulmonary: No pertinent hx GI: No pertinent hx Heme/Onc: No pertinent hx Hepatobiliary: No pertinent hx Psych: No pertinent hx Musculoskeletal: Osteoarthritis Rheumatologic: No pertinent hx Infectious disease: No pertinent hx Renal/: No pertinent hx Endocrine: No pertinent hx Past Surgical History Past Surgical History: Cataract Removal, Tonsillectomy, Other Family History Family History: High Cholestrol, Hypertension Social History Smoke: No ALCOHOL: none Drugs: None Current Problem List Problem List Problems Medical Problems: (1) NSTEMI (non-ST elevated myocardial infarction) Status: Acute Current Medications Current Medications Current Medications Aspirin (Denisse Aspirin) 325 mg 1X ONCE PO Last administered on 04/12/20at 10:16; Start 04/12/20 at 10:15; Stop 04/12/20 at 10:16; Status DC Heparin Sodium (Porcine) (Heparin Sodium) 4,000 unit 1X ONCE IV Last administered on 04/12/20at 10:19; Start 04/12/20 at 10:15; Stop 04/12/20 at 10:19; Status DC Heparin Sodium (Porcine) (Heparin Sodium) 10,000 unit STK-MED ONCE .ROUTE ; Start 04/12/20 at 10:15; Stop 04/12/20 at 10:15; Status DC Fentanyl Citrate (Fentanyl 2ml Vial) 50 mcg 1X ONCE IV ; Start 04/12/20 at 11:30; Stop 04/12/20 at 11:31; Status DC Iodixanol (Visipaque 320) 100 ml STK-MED ONCE .ROUTE ; Start 04/12/20 at 11:33; Stop 04/12/20 at 11:34; Status DC Lidocaine HCl (Xylocaine-Mpf 1% 2ml Vial) 2 ml STK-MED ONCE .ROUTE ; Start 04/12/20 at 11:34; Stop 04/12/20 at 11:34; Status DC Heparin Sodium/ Sodium Chloride 0 ml @ As Directed STK-MED ONCE .ROUTE ; Start 04/12/20 at 11:34; Stop 04/12/20 at 11:34; Status DC Ondansetron HCl (Zofran) 4 mg PRN Q8HRS PRN IV NAUSEA/VOMITING; Start 04/12/20 at 12:00; Stop 04/13/20 at 11:59 Fentanyl Citrate (Fentanyl 2ml Vial) 50 mcg Q2HR PRN IV PAIN; Start 04/12/20 at 12:00; Stop 04/13/20 at 11:59 Fentanyl Citrate (Fentanyl 2ml Vial) 100 mcg STK-MED ONCE .ROUTE ; Start 04/12/20 at 11:55; Stop 04/12/20 at 11:56; Status DC Midazolam HCl (Versed) 2 mg STK-MED ONCE .ROUTE ; Start 04/12/20 at 11:56; Stop 04/12/20 at 11:56; Status DC Heparin Sodium (Porcine) (Heparin Sodium) 10,000 unit STK-MED ONCE .ROUTE ; Start 04/12/20 at 11:56; Stop 04/12/20 at 11:56; Status DC Verapamil HCl (Verapamil) 5 mg STK-MED ONCE .ROUTE ; Start 04/12/20 at 11:56; Stop 04/12/20 at 11:56; Status DC Nitroglycerin (Nitroglycerin) 200 mcg STK-MED ONCE .ROUTE ; Start 04/12/20 at 11:58; Stop 8/31/20 at 11:58; Status DC Active Scripts Active Aspir 81 (Aspirin) 81 Mg Tablet.dr 1 Tab PO DAILY Clopidogrel (Clopidogrel Bisulfate) 75 Mg Tablet 75 Mg PO [id number] 30 Days Atorvastatin Calcium 20 Mg Tablet 20 Mg PO QHS 30 Days Allergies Allergies: Coded Allergies: No Known Drug Allergies (Unverified , 05/06/14) ROS General: YES: Fatigue, Malaise; No: Chills, Night Sweats, Appetite, Other PSYCHOLOGICAL ROS: No: Anxiety, Behavioral Disorder, Concentration difficultie, Decreased libido, Depression, Disorientation, Hallucinations, Hostility, Irritablity, Memory difficulties, Mood Swings, Obsessive thoughts, Physical abuse, Sexual abuse, Sleep disturbances, Suicidal ideation, Other Eyes: No Blurry vision, No Decreased vision, No Double vision, No Dry eyes, No Excessive tearing, No Eye Pain, No Itchy Eyes, No Loss of vision, No Photophobia, No Scotomata, No Uses contacts, No Uses glasses, No Other HEENT: No: Heacaches, Visual Changes, Hearing change, Nasal congestion, Nasal discharge, Oral lesions, Sinus pain, Sore Throat, Epistaxis, Sneezing, Snoring, Tinnitus, Vertigo, Vocal changes, Other ALLERGY AND IMMUNOLOGY: No: Hives, Insect Bite Sensitivity, Itchy/Watery Eyes, Nasal Congestion, Post Nasal Drip, Seasonal Allergies, Other Hematological and Lymphatic: No: Bleeding Problems, Blood Clots, Blood Transfusions, Brusing, Night Sweats, Pallor, Swollen Lymph Nodes, Other ENDOCRINE: No: Breast Changes, Galactorrhea, Hair Pattern Changes, Hot Flashes, Malaise/lethargy, Mood Swings, Palpitations, Polydipsia/polyuria, Skin Changes, Temperature Intolerance, Unexpected Weight Changes, Other Breast: No New/Changing Breast Lumps, No Nipple changes, No Nipple discharge, No Other Respiratory: No: Cough, Hemoptysis, Orthopnea, Pleuritic Pain, Shortness of breath, SOB with excertion, Sputum Changes, Stridor, Tachypnea, Wheezing, Other Cardiovascular: yes Chest Pain; No Palpitations, No Orthopnea, No Paroxysmal Noc. Dyspnea, No Edema, No Lt Headedness, No Other Gastrointestinal: Yes Nausea; No Vomiting, No Abdominal Pain, No Diarrhea, No Constipation, No Melena, No Hematochezia, No Other Genitourinary: No Dysuria, No Frequency, No Incontinence, No Hematuria, No Retention, No Discharge, No Urgency, No Pain, No Flank Pain, No Other, No , No , No , No , No , No , No Musculoskeletal: No Gait Disturbance, No Joint Pain, No Joint Stiffness, No Joint Swelling, No Muscle Pain, No Muscular Weakness, No Pain In:, No Swelling In:, No Other Neurological: No Behavorial Changes, No Bowel/Bladder ControlChng, No Confusion , No Dizziness, No Gait Disturbance, No Headaches, No Impaired Coord/balance, No Memory Loss, No Numbness/Tingling, No Seizures, No Speech Problems, No Tremors, No Visual Changes, No Weakness, No Other Skin: No Dry Skin, No Eczema, No Hair Changes, No Lumps, No Mole Changes, No Mottling, No Nail Changes, No Pruritus, No Rash, No Skin Lesion Changes, No Other, No Acne Physical Exam General: Alert, Oriented X3, Cooperative, moderate distress HEENT: Atraumatic, PERRLA, EOMI, Mucous membr. moist/pink Heart: S1S2, RRR, no thrills, no rubs, no gallops, no murmurs Abdomen: Normal bowel sounds, Soft, No tenderness, No hepatosplenomegaly, No masses Rectal Exam: not examined Extremities: No clubbing, No cyanosis, No edema, Normal pulses, No tenderness/swelling Skin: No rashes, No breakdown, No significant lesion Neuro: Normal gait, Normal speech, Strength at 5/5 X4 ext, Normal tone, Sensation intact, Cranial nerves 3-12 NL, Reflexes 2+ Psych/Mental Status: Mental status NL, Mood NL Vitals Vitals Vital Signs Date Time Temp Pulse Resp B/P (MAP) Pulse Ox O2 Delivery O2 Flow Rate FiO2 04/12/20 09:59 99.1 88 16 121/98 (106) 97 Room Air 99.1 Labs Labs Laboratory Tests Test 04/12/20 10:08 04/12/20 10:30 White Blood Count 13.5 x10^3/uL (4.0-11.0) Red Blood Count 5.13 x10^6/uL (4.30-5.70) Hemoglobin 16.7 g/dL (13.0-17.5) Hematocrit 49.3 % (39.0-53.0) Mean Corpuscular Volume 96 fL (79-100) Mean Corpuscular Hemoglobin 33 pg (25-35) Mean Corpuscular Hemoglobin Concent 34 g/dL (31-37) Red Cell Distribution Width 14.8 % (11.5-14.5) Platelet Count 149 x10^3/uL (140-400) Neutrophils (%) (Auto) 84 % (31-73) Lymphocytes (%) (Auto) 5 % (24-48) Monocytes (%) (Auto) 11 % (0-9) Eosinophils (%) (Auto) 0 % (0-3) Basophils (%) (Auto) 0 % (0-3) Neutrophils # (Auto) 11.3 x10^3/uL (1.8-7.7) Lymphocytes # (Auto) 0.7 x10^3/uL (1.0-4.8) Monocytes # (Auto) 1.5 x10^3/uL (0.0-1.1) Eosinophils # (Auto) 0.0 x10^3/uL (0.0-0.7) Basophils # (Auto) 0.0 x10^3/uL (0.0-0.2) Prothrombin Time 15.6 SEC (11.7-14.0) Prothromb Time International Ratio 1.3 (0.8-1.1) Activated Partial Thromboplast Time 131 SEC (24-38) Sodium Level 138 mmol/L (136-145) Potassium Level 4.1 mmol/L (3.5-5.1) Chloride Level 104 mmol/L (98-107) Carbon Dioxide Level 25 mmol/L (21-32) Anion Gap 9 (6-14) Blood Urea Nitrogen 12 mg/dL (8-26) Creatinine 1.3 mg/dL (0.7-1.3) Estimated GFR (Cockcroft-Gault) 66.2 BUN/Creatinine Ratio 9 (6-20) Glucose Level 129 mg/dL (70-99) Calcium Level 8.9 mg/dL (8.5-10.1) Magnesium Level 2.0 mg/dL (1.8-2.4) Total Bilirubin 1.7 mg/dL (0.2-1.0) Aspartate Amino Transf (AST/SGOT) 890 U/L (15-37) Alanine Aminotransferase (ALT/SGPT) 80 U/L (16-63) Alkaline Phosphatase 97 U/L (46-116) Troponin I Quantitative 193.780 ng/mL (0.000-0.055) UQ-Mqo-G-Type Natriuretic Peptide 3192 pg/mL (0-124) Total Protein 7.8 g/dL (6.4-8.2) Albumin 3.8 g/dL (3.4-5.0) Albumin/Globulin Ratio 1.0 (1.0-1.7) Lipase 43 U/L (73-393) Laboratory Tests Test 04/12/20 10:08 04/12/20 10:30 White Blood Count 13.5 x10^3/uL (4.0-11.0) Red Blood Count 5.13 x10^6/uL (4.30-5.70) Hemoglobin 16.7 g/dL (13.0-17.5) Hematocrit 49.3 % (39.0-53.0) Mean Corpuscular Volume 96 fL (79-100) Mean Corpuscular Hemoglobin 33 pg (25-35) Mean Corpuscular Hemoglobin Concent 34 g/dL (31-37) Red Cell Distribution Width 14.8 % (11.5-14.5) Platelet Count 149 x10^3/uL (140-400) Neutrophils (%) (Auto) 84 % (31-73) Lymphocytes (%) (Auto) 5 % (24-48) Monocytes (%) (Auto) 11 % (0-9) Eosinophils (%) (Auto) 0 % (0-3) Basophils (%) (Auto) 0 % (0-3) Neutrophils # (Auto) 11.3 x10^3/uL (1.8-7.7) Lymphocytes # (Auto) 0.7 x10^3/uL (1.0-4.8) Monocytes # (Auto) 1.5 x10^3/uL (0.0-1.1) Eosinophils # (Auto) 0.0 x10^3/uL (0.0-0.7) Basophils # (Auto) 0.0 x10^3/uL (0.0-0.2) Prothrombin Time 15.6 SEC (11.7-14.0) Prothromb Time International Ratio 1.3 (0.8-1.1) Activated Partial Thromboplast Time 131 SEC (24-38) Sodium Level 138 mmol/L (136-145) Potassium Level 4.1 mmol/L (3.5-5.1) Chloride Level 104 mmol/L (98-107) Carbon Dioxide Level 25 mmol/L (21-32) Anion Gap 9 (6-14) Blood Urea Nitrogen 12 mg/dL (8-26) Creatinine 1.3 mg/dL (0.7-1.3) Estimated GFR (Cockcroft-Gault) 66.2 BUN/Creatinine Ratio 9 (6-20) Glucose Level 129 mg/dL (70-99) Calcium Level 8.9 mg/dL (8.5-10.1) Magnesium Level 2.0 mg/dL (1.8-2.4) Total Bilirubin 1.7 mg/dL (0.2-1.0) Aspartate Amino Transf (AST/SGOT) 890 U/L (15-37) Alanine Aminotransferase (ALT/SGPT) 80 U/L (16-63) Alkaline Phosphatase 97 U/L (46-116) Troponin I Quantitative 193.780 ng/mL (0.000-0.055) TX-Tis-K-Type Natriuretic Peptide 3192 pg/mL (0-124) Total Protein 7.8 g/dL (6.4-8.2) Albumin 3.8 g/dL (3.4-5.0) Albumin/Globulin Ratio 1.0 (1.0-1.7) Lipase 43 U/L (73-393) Images Images CXR: There is no infiltrate, pneumothorax, or effusion. The pericardial cardiac silhouette is within normal limits in size. Impression: 1. There is no radiographic evidence of acute cardiopulmonary disease. VTE Prophylaxis Ordered VTE Prophylaxis Devices: Yes VTE Pharmacological Prophylaxi: Yes Assessment/Plan Assessment/Plan A/P: NSTEMI with LAD near in-stent occlusion s/p thrombectomy and new LAD stent placed for 80% stenosis and planned RCA stent in 2 weeks. Plavix, ASA, statin, check A1c, TSH Hypertension - BB indicated Hyperlipidemia - historically with LDL 114. Atorvastatin ordered Transaminitis - previously noted at a much more mild level. liver sono showing fatty liver and hepatitis profile negative in 2018. 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 No sign of infectious etiology FEN - Cardiac diet PPX - heparin FULL CODE Dispo - inpatient ICU admission, CC time 43 minutes, seen pre-and post cardiac cath Justifications for Admission Other Justification CHARLENE SILVA MD Apr 12, 2020 12:00
[2020-04-12] MEDS ORDERED: BIVALIRUDIN 250 MG VIAL. IV ONE ×4 (12:10→13:00)
[2020-04-12] MEDS ORDERED: HEPARIN for IV BOLUS 10,000 UNIT/10 ML VIAL. IART ONE (12:30)
[2020-04-12] MEDS ORDERED: LIDOCAINE 1% PF 2 ML VIAL. INJ ONE (12:30)
[2020-04-12] MEDS ORDERED: IODIXANOL 320 MG/ML 100 ML VIAL. IART ONE (12:30)
[2020-04-12] MEDS ORDERED: VERAPAMIL 5 MG/2 ML VIAL. IART ONE (12:30)
[2020-04-12] MEDS ORDERED: MIDAZOLAM HCL/PF 2 MG/2 ML VIAL. IV ONE (12:30)
[2020-04-12] MEDS ORDERED: NITROGLYCERIN 200 MCG/2 ML SYRINGE FOR CATH/VASC LAB. IART ONE ×3 (12:30→13:00)
[2020-04-12] MEDS ORDERED: TICAGRELOR 90 MG TABLET. PO ONE (13:15)
[2020-04-12] MEDS ORDERED: IV 1/2 NORMAL SALINE 1,000 ML IV SCH (13:51)
[2020-04-12] MEDS ORDERED: ACETAMINOPHEN 325 MG TABLET. PO PRN (14:00)
[2020-04-12] MEDS ORDERED: NITROGLYCERIN SUBLINGUAL 0.4 MG BOTTLE OF 25. SL PRN (14:00)
--- NOTE | 2020-04-12 14:08 | CARD ---
MR#: [id number] Date of Study: 04/12/2020 Ordering Physician: GELA CRUZ, Referring Physician: GELA CRUZ, Tech: VALDO BARKER RTR APPROVED REPORT Technologist: VALDO BARKER RTR Nurse: TRENTON LEAHY RN Procedure(s) performed: 1. Left heart catheterization and selective coronary angiography via right t ransradial approach 2. Successful complex PTCA to in-stent thrombosis involving proximal segment and PCI/BENITA placement t o the mid to distal segment of left anterior descending artery MODERATE SEDATION TIME: 72 MINS FLUORO TIME: 23.9 MIN DOSE: 197 GYCM2 CONTRAST: 228 CC VISI INDICATION The indication(s) include : non-STEMI . CS Clinical Frailty Scale [facility] Clinical Frailty Scale: Mildly Frail Heart Failure Heart Failure: No PROCEDURE NARRATIVE After explaining the risks, benefits and alternative options, informed consent was obtained from carlee ent. Patient was brought to the cardiac Solar Designer and right wrist was prepped and draped in the usual fashion after confirming a positive modified Kee's test. Arterial access was obtained in the righ t radial artery and a 6 Gibraltarian sheath was inserted. 6 Gibraltarian Philippe catheter was used to perform lis ective angiography of the left and right coronary arteries. Left ventriculography was not performed due to contrast load used for intervention. The following findings were noted. FINDINGS a. The left main coronary artery arose from the left sinus of Valsalva, gave rise to the left anteri or descending and left circumflex arteries and did not show any significant stenosis. b. The left anterior descending artery showed 99% in-stent thrombosis involving the proximal segment . Also seen was 80% stenosis involving the mid to distal segment and another 80% stenosis involving the very distal segment was the apical wall. c. The left circumflex artery showed 30% stenosis in the midsegment. The obtuse marginal branch whi ch is a large caliber vessel showed 40% stenosis in the proximal to mid segment. A branch of this ve ssel which is a small to medium caliber vessel showed 80% stenosis. d. The right coronary artery was a large and dominant vessel arising from the right sinus of Valsalv a that showed patent stent in the midsegment. Just prior to this stent, a 70% stenosis was noted. INTERVENTION The left main coronary artery was engaged with a 6 Gibraltarian XB 3.5 guide catheter. The lesions in the proximal and mid to distal segments were crossed with a 0.014 inch Ur[employer]ift pro-water guidewire. A Pron to aspiration catheter was used to perform thrombus aspiration within the stent in the proximal segme nt with multiple passes. Subsequently, the mid to distal segment was dilated with a 2.25 x 20 mm Azumio emerge balloon following which this was treated with a 2.25 x 20 mm [employer] Promus Elite drug-eluting stent. The very distal lesion was dilated with a 2.25 x 20 mm balloon at v maryann low pressures. Subsequently, multiple inflations were performed within the stent in the proximal segment using 3.0 x 15 mm NC Euphora noncompliant balloon followed by 3.5 x 15 mm [employer] NC emerge noncompliant balloons at high pressures with prolonged inflations. Follow-up angiography s howed resolution of the lesions with good distal flow. Patient tolerated the procedure well. Hemost asis was achieved using TR band. There were no immediate complications. DAMIAN Flow DAMIAN Flow (Pre-Intervention): DAMIAN-1 DAMIAN Flow (Post-Intervention): DAMIAN-3 DAMIAN Flow DAMIAN Flow (Pre-Intervention): DAMIAN-1 DAMIAN Flow (Post-Intervention): DAMIAN-3 Conclusion 1. 99% in-stent thrombosis involving the proximal segment of left anterior descending artery, the cu lprit lesion for patient's non-STEMI. Patient also had 80% stenosis involving the mid to distal segm ent of LAD. The previously placed stent in the mid segment of RCA was widely patent but just proxima l to the stent, 70% stenosis was noted.. 2. Successful PCI/drug-eluting stent placement to the mid to distal segment of LAD. Successful aspi ration thrombectomy and balloon PTCA to in-stent thrombus/restenosis involving the proximal segment o f left anterior descending artery. Recommendations 1. Aspirin 81 mg daily 2. Ticagrelor 90 mg twice daily 3. Cardiovascular risk factor modification and cardiac rehabilitation referral 4. Plan for staged PCI to RCA in 2 to 4 weeks. Signed by : Gela Cruz, Electronically Approved : 04/12/2020 14:07:44
[2020-04-12] MEDS: CARVEDILOL 6.25 MG TABLET. PO SCH (17:00)
--- NOTE | 2020-04-12 17:10 | EKG ---
[facility] [address] [place] [address] Test Date: 2020-04-12 Test Time: 10:00:56 Pat Name: LARON SHERWOOD Department: Room: Gender: M Relay Adjuster: CHALO : 1950 Requested By: LARON LOPEZ Order Number: [id number] Reading MD: Measurements Intervals [place] Rate: 95 P: -90 FL: 120 QRS: 34 QRSD: 80 T: 108 QT: 324 QTc: 410 Interpretive Statements SUPRAVENTRICULAR RHYTHM LOW LIMB LEAD VOLTAGE QRS(T) CONTOUR ABNORMALITY CONSISTENT WITH ANTERIOR INFARCT AGE UNDETERMINED CONSISTENT WITH INFERIOR INFARCT PROBABLY OLD T ABNORMALITY IN HIGH LATERAL LEADS ABNORMAL ECG RI6.02 No previous ECG available for comparison
[2020-04-12] MEDS: ATORVASTATIN CALCIUM 20 MG TABLET PO SCH (20:47)
[2020-04-13] VITALS (14 sets, daily range): BP systolic 80–111; BP diastolic 59–84
[2020-04-13 06:43] LABS: BASO % 0 % (0-3); EOS % 0 % (0-3); HEMATOCRIT 43.7 % (39.0-53.0); HEMOGLOBIN 15.1 g/dL (13.0-17.5); LYMPH # 0.9 x10^3/uL (1.0-4.8); LYMPH % 9 % (24-48); MEAN CORPUSCULAR HEMOGLOBIN 33 pg (25-35); MEAN CORPUSCULAR HGB CONC 35 g/dL (31-37); MEAN CORPUSCULAR VOLUME 96 fL (79-100); MONO # 1.3 x10^3/uL (0.0-1.1); MONO % 13 % (0-9); NEUT % 78 % (31-73); PLATELET COUNT 113 x10^3/uL (140-400); RED BLOOD COUNT 4.54 x10^6/uL (4.30-5.70); RED CELL DISTRIBUTION WIDTH 14.7 % (11.5-14.5); WHITE BLOOD COUNT 10.4 x10^3/uL (4.0-11.0)
[2020-04-13 06:59] LABS: ALBUMIN 2.9 g/dL (3.4-5.0); ALBUMIN/GLOBULIN RATIO 0.8 (1.0-1.7); CALCIUM 8.5 mg/dL (8.5-10.1); CREATININE 1.1 mg/dL (0.7-1.3); GFR 80.3; POTASSIUM 3.6 mmol/L (3.5-5.1); TOTAL PROTEIN 6.5 g/dL (6.4-8.2)
[2020-04-13] MEDS: CARVEDILOL 6.25 MG TABLET. PO SCH (08:00)
--- NOTE | 2020-04-13 08:59 | RAD ---
Right upper quadrant ultrasound 04/13/2020 INDICATION: Acute hepatitis. COMPARISON STUDY: Abdominal ultrasound October 07, 2017. Discussion: Ultrasound evaluation of the abdomen was performed. Static images are submitted to PACS. FINDINGS: The pancreas is partially visualized. Visualized portions of the pancreas are unremarkable. Visualized portions of the IVC are unremarkable. Portions of the liver obscured. Liver appears to be within normal limits in regards to size. No focal hepatic lesions are identified on provided images. No definitive abnormality of hepatic echotexture is identified. No gross biliary ductal dilatation is seen. The gallbladder is unremarkable in appearance without evidence of wall thickening, stones, or sludge. The right kidney is grossly normal in appearance measuring 10 cm in length. The common bile duct is nondilated measuring 4 mm in diameter. IMPRESSION: Limited exam without sonographic evidence of acute abnormality. Electronically signed by: Romeo Montilla MD (04/13/2020 8:56 AM) [id number]
--- NOTE | 2020-04-13 09:20 | PDOC2 ---
GI CONSULT Date of Service: DATE: 04/13/20 TIME: 09:20 Reason For Consult: transaminitis, recurrent HPI: HPI: Pleasant 69 y/o male w/ acute onset of left-sided chest pain while moving the lawn. Had NSTEMI, s/p cardiac cath 04/12/20 w/ thrombectomy and stent placement w/ plan for staged PCI to RCA in 2 - 4 weeks (see report below). We are asked to see re: elevated LFTs. On admission: bili 1.7, AST 890, ALT 80. Today: bili 2, AST 499, ALT 66. Normal Alk Phos. Past US (in 2018) w/ fatty liver. US today unrevealing for acute issue. Viral hepatitis panel negative in 2018. AST mildly elevated in 2018 (less than now). Denies alcohol and tobacco use. Unaware of any liver problems in the past. Denies reflux/heartburn, dysphagia, n/v, abd pain, diarrhea, constipation, hematochezia, melena, change in appetite, or weight loss. No previous EGD. Colonoscopy in 2013 w/ Dr. Nora Larsen reportedly normal. No GB, liver, or PUD history. Previously on ASA and Plavix, now continued on ASA w/ addition of Brilinta. PMH: PMH: CAD w/ stent, HTN, HLD corneal transplant, tonsillectomy FH: Family History: Cancer (stomach - brother) Social History: Smoke: No ALCOHOL: none Drugs: None ROS: GEN: Denies fevers, chills, sweats HEENT: Denies blurred vision, sore throat CV: +CP RESP: Denies shortness of air, cough GI: Per HPI : Denies hematuria, dysuria ENDO: Denies weight changes NEURO: Denies confusion, dizziness MSK: Denies weakness, joint pain/swelling SKIN: Denies jaundice, pruritus Vitals: Vitals: Vital Signs Date Time Temp Pulse Resp B/P (MAP) Pulse Ox O2 Delivery O2 Flow Rate FiO2 04/13/20 08:59 98.3 87 20 90/78 (82) 97 Room Air 98.3 04/12/20 13:15 2.0 Labs: Labs: Laboratory Tests Test 04/12/20 10:08 04/12/20 10:30 04/13/20 05:55 White Blood Count 13.5 x10^3/uL (4.0-11.0) 10.4 x10^3/uL (4.0-11.0) Red Blood Count 5.13 x10^6/uL (4.30-5.70) 4.54 x10^6/uL (4.30-5.70) Hemoglobin 16.7 g/dL (13.0-17.5) 15.1 g/dL (13.0-17.5) Hematocrit 49.3 % (39.0-53.0) 43.7 % (39.0-53.0) Mean Corpuscular Volume 96 fL (79-100) 96 fL (79-100) Mean Corpuscular Hemoglobin 33 pg (25-35) 33 pg (25-35) Mean Corpuscular Hemoglobin Concent 34 g/dL (31-37) 35 g/dL (31-37) Red Cell Distribution Width 14.8 % (11.5-14.5) 14.7 % (11.5-14.5) Platelet Count 149 x10^3/uL (140-400) 113 x10^3/uL (140-400) Neutrophils (%) (Auto) 84 % (31-73) 78 % (31-73) Lymphocytes (%) (Auto) 5 % (24-48) 9 % (24-48) Monocytes (%) (Auto) 11 % (0-9) 13 % (0-9) Eosinophils (%) (Auto) 0 % (0-3) 0 % (0-3) Basophils (%) (Auto) 0 % (0-3) 0 % (0-3) Neutrophils # (Auto) 11.3 x10^3/uL (1.8-7.7) 8.0 x10^3/uL (1.8-7.7) Lymphocytes # (Auto) 0.7 x10^3/uL (1.0-4.8) 0.9 x10^3/uL (1.0-4.8) Monocytes # (Auto) 1.5 x10^3/uL (0.0-1.1) 1.3 x10^3/uL (0.0-1.1) Eosinophils # (Auto) 0.0 x10^3/uL (0.0-0.7) 0.0 x10^3/uL (0.0-0.7) Basophils # (Auto) 0.0 x10^3/uL (0.0-0.2) 0.0 x10^3/uL (0.0-0.2) Prothrombin Time 15.6 SEC (11.7-14.0) Prothromb Time International Ratio 1.3 (0.8-1.1) Activated Partial Thromboplast Time 131 SEC (24-38) Sodium Level 138 mmol/L (136-145) 139 mmol/L (136-145) Potassium Level 4.1 mmol/L (3.5-5.1) 3.6 mmol/L (3.5-5.1) Chloride Level 104 mmol/L (98-107) 106 mmol/L (98-107) Carbon Dioxide Level 25 mmol/L (21-32) 23 mmol/L (21-32) Anion Gap 9 (6-14) 10 (6-14) Blood Urea Nitrogen 12 mg/dL (8-26) 11 mg/dL (8-26) Creatinine 1.3 mg/dL (0.7-1.3) 1.1 mg/dL (0.7-1.3) Estimated GFR (Cockcroft-Gault) 66.2 80.3 BUN/Creatinine Ratio 9 (6-20) 10 (6-20) Glucose Level 129 mg/dL (70-99) 107 mg/dL (70-99) Calcium Level 8.9 mg/dL (8.5-10.1) 8.5 mg/dL (8.5-10.1) Magnesium Level 2.0 mg/dL (1.8-2.4) Total Bilirubin 1.7 mg/dL (0.2-1.0) 2.0 mg/dL (0.2-1.0) Aspartate Amino Transf (AST/SGOT) 890 U/L (15-37) 499 U/L (15-37) Alanine Aminotransferase (ALT/SGPT) 80 U/L (16-63) 66 U/L (16-63) Alkaline Phosphatase 97 U/L (46-116) 76 U/L (46-116) Troponin I Quantitative 193.780 ng/mL (0.000-0.055) GR-Tod-I-Type Natriuretic Peptide 3192 pg/mL (0-124) Total Protein 7.8 g/dL (6.4-8.2) 6.5 g/dL (6.4-8.2) Albumin 3.8 g/dL (3.4-5.0) 2.9 g/dL (3.4-5.0) Albumin/Globulin Ratio 1.0 (1.0-1.7) 0.8 (1.0-1.7) Lipase 43 U/L (73-393) Thyroid Stimulating Hormone (TSH) 1.426 uIU/mL (0.358-3.74) Allergies: Coded Allergies: No Known Drug Allergies (Unverified , 05/06/14) Medications: Current Medications Medications (Trade) Dose Ordered Sig/Torsten Route PRN Reason Start Time Stop Time Status Last Admin Dose Admin Aspirin (Denisse Aspirin) 325 mg 1X ONCE PO 04/12/20 10:15 04/12/20 10:16 DC 04/12/20 10:16 Heparin Sodium (Porcine) (Heparin Sodium) 4,000 unit 1X ONCE IV 04/12/20 10:15 04/12/20 10:19 DC 04/12/20 10:19 Nitroglycerin (Nitroglycerin) 200 mcg 1X ONCE IART 04/12/20 12:30 04/12/20 12:31 DC 04/12/20 12:30 Verapamil HCl (Verapamil) 2.5 mg 1X ONCE IART 04/12/20 12:30 04/12/20 12:31 DC 04/12/20 12:30 Heparin Sodium (Porcine) (Heparin Sodium) 2,500 unit 1X ONCE IART 04/12/20 12:30 04/12/20 12:31 DC 04/12/20 12:30 Heparin Sodium/ Sodium Chloride (HEPARIN for ARTERIAL LINE FLUSH) 1,000 unit 1X ONCE IART 04/12/20 12:30 04/12/20 12:31 DC 04/12/20 12:30 Midazolam HCl (Versed) 2 mg 1X ONCE IV 04/12/20 12:30 04/12/20 12:31 DC 04/12/20 12:30 Fentanyl Citrate (Fentanyl 2ml Vial) 50 mcg 1X ONCE IV 04/12/20 12:30 04/12/20 12:31 DC 04/12/20 12:30 Iodixanol (Visipaque 320) 100 ml 1X ONCE IART 04/12/20 12:30 04/12/20 12:31 DC 04/12/20 12:30 Bivalirudin (Angiomax) 250 mg 1X ONCE IV 04/12/20 12:30 04/12/20 12:31 DC 04/12/20 12:30 Lidocaine HCl (Xylocaine-Mpf 1% 2ml Vial) 1 ml 1X ONCE INJ 04/12/20 12:30 04/12/20 12:31 DC 04/12/20 12:30 Nitroglycerin (Nitroglycerin) 200 mcg 1X ONCE IART 04/12/20 12:45 04/12/20 12:46 DC 04/12/20 12:45 Bivalirudin (Angiomax) 250 mg 1X ONCE IV 04/12/20 13:00 04/12/20 13:01 DC 04/12/20 13:00 Nitroglycerin (Nitroglycerin) 200 mcg 1X ONCE IART 04/12/20 13:00 04/12/20 13:02 DC 04/12/20 13:00 Ticagrelor (Brilinta) 180 mg 1X ONCE PO 04/12/20 13:15 04/12/20 13:16 DC 04/12/20 13:15 Sodium Chloride 1,000 ml @ 100 mls/hr Q10H IV 04/12/20 13:51 04/12/20 23:50 DC 04/12/20 18:14 Atorvastatin Calcium (Lipitor) 40 mg QHS PO 04/12/20 21:00 04/12/20 20:47 Imaging: Imaging: Coronary Arteriogram Conclusion 1. 99% in-stent thrombosis involving the proximal segment of left anterior descending artery, the culprit lesion for patient's non-STEMI. Patient also had 80% stenosis involving the mid to distal segment of LAD. The previously placed stent in the mid segment of RCA was widely patent but just proximal to the stent, 70% stenosis was noted.. 2. Successful PCI/drug-eluting stent placement to the mid to distal segment of LAD. Successful aspiration thrombectomy and balloon PTCA to in-stent thrombus/restenosis involving the proximal segment of left anterior descending artery. Recommendations 1. Aspirin 81 mg daily 2. Ticagrelor 90 mg twice daily 3. Cardiovascular risk factor modification and cardiac rehabilitation referral 4. Plan for staged PCI to RCA in 2 to 4 weeks. CXR Impression: 1. There is no radiographic evidence of acute cardiopulmonary disease. RUQ US IMPRESSION: Limited exam without sonographic evidence of acute abnormality. PE: GEN: NAD HEENT: Atraumatic LUNGS: CTAB HEART: RRR ABD: NABS, S/ND/NT EXTREMITY: No edema SKIN: No rashes, no jaundice NEURO/PSYCH: A & O 3 A/P: A/P: S/p NSTEMI w/ stent placement and thrombectomy Elevated LFTs, mild thrombocytopenia and coagulopathy Hepatic steatosis - on past US CRC screen - UTD; reportedly normal colonoscopy in 2018 stomach cancer -- Reviewed w/ Dr. Prasad - elevation in AST possibly related to MT w/ background of fatty liver. Fractionate bili. DC per cardiology w/ plan to recheck LFTs as outpt w/ PCP in ~1 week. ALINA JARAMILLO Apr 13, 2020 09:20
[2020-04-13] MEDS: TICAGRELOR 90 MG TABLET. PO SCH ×2 (09:43→20:15)
[2020-04-13] MEDS: ASPIRIN ENTERIC COATED 81 MG TABLET.DR. PO SCH (09:43)
--- NOTE | 2020-04-13 11:26 | PDOC ---
[facility] PROGRESS NOTE Date of Service DOS: DATE: 04/13/20 TIME: 11:24 Chief Complaint Chief Complaint Acute [place] History of Present Illness History of Present Illness 04/13/2020 Patient seen and examined in the ICU He is awaiting cardiac cath this morning Chart reviewed Discussed with nurse Discussed with case management Vitals/I&O Vitals/I&O: Vital Signs Date Time Temp Pulse Resp B/P (MAP) Pulse Ox O2 Delivery O2 Flow Rate FiO2 04/13/20 11:04 98.1 86 27 102/76 (85) 98 Room Air 98.1 04/12/20 13:15 2.0 I & O 04/12/20 04/12/20 04/13/20 15:00 23:00 07:00 Intake Total 300 ml 200 ml 1420 ml Output Total 600 ml 400 ml Balance 300 ml -400 ml 1020 ml Physical Exam General: Alert, Oriented X3, Cooperative, moderate distress Heart: Regular rate Abdomen: Normal bowel sounds, Soft, No tenderness, No hepatosplenomegaly, No masses Extremities: No clubbing, No cyanosis, No edema, Normal pulses, No tenderness/swelling Skin: No rashes, No breakdown, No significant lesion Labs Labs: Laboratory Tests Test 04/13/20 05:55 White Blood Count 10.4 x10^3/uL (4.0-11.0) Red Blood Count 4.54 x10^6/uL (4.30-5.70) Hemoglobin 15.1 g/dL (13.0-17.5) Hematocrit 43.7 % (39.0-53.0) Mean Corpuscular Volume 96 fL (79-100) Mean Corpuscular Hemoglobin 33 pg (25-35) Mean Corpuscular Hemoglobin Concent 35 g/dL (31-37) Red Cell Distribution Width 14.7 % (11.5-14.5) Platelet Count 113 x10^3/uL (140-400) Neutrophils (%) (Auto) 78 % (31-73) Lymphocytes (%) (Auto) 9 % (24-48) Monocytes (%) (Auto) 13 % (0-9) Eosinophils (%) (Auto) 0 % (0-3) Basophils (%) (Auto) 0 % (0-3) Neutrophils # (Auto) 8.0 x10^3/uL (1.8-7.7) Lymphocytes # (Auto) 0.9 x10^3/uL (1.0-4.8) Monocytes # (Auto) 1.3 x10^3/uL (0.0-1.1) Eosinophils # (Auto) 0.0 x10^3/uL (0.0-0.7) Basophils # (Auto) 0.0 x10^3/uL (0.0-0.2) Sodium Level 139 mmol/L (136-145) Potassium Level 3.6 mmol/L (3.5-5.1) Chloride Level 106 mmol/L (98-107) Carbon Dioxide Level 23 mmol/L (21-32) Anion Gap 10 (6-14) Blood Urea Nitrogen 11 mg/dL (8-26) Creatinine 1.1 mg/dL (0.7-1.3) Estimated GFR (Cockcroft-Gault) 80.3 BUN/Creatinine Ratio 10 (6-20) Glucose Level 107 mg/dL (70-99) Calcium Level 8.5 mg/dL (8.5-10.1) Total Bilirubin 2.0 mg/dL (0.2-1.0) Aspartate Amino Transf (AST/SGOT) 499 U/L (15-37) Alanine Aminotransferase (ALT/SGPT) 66 U/L (16-63) Alkaline Phosphatase 76 U/L (46-116) Total Protein 6.5 g/dL (6.4-8.2) Albumin 2.9 g/dL (3.4-5.0) Albumin/Globulin Ratio 0.8 (1.0-1.7) Assessment and Plan Assessmemt and Plan Problems Medical Problems: (1) NSTEMI (non-ST elevated myocardial infarction) Status: Acut Acute myocardial infarction Plan ICU monitoring He is going go for cardiac cath later today I suspect Home meds DVT prophylaxis Full code Trend labs Prognosis guarded Comment Review of Relevant I have reviewed the following items bhavani (where applicable) has been applied. Medications: Current Medications Medications (Trade) Dose Ordered Sig/Torsten Route PRN Reason Start Time Stop Time Status Last Admin Dose Admin Nitroglycerin (Nitroglycerin) 200 mcg 1X ONCE IART 04/12/20 12:30 04/12/20 12:31 DC 04/12/20 12:30 Verapamil HCl (Verapamil) 2.5 mg 1X ONCE IART 04/12/20 12:30 04/12/20 12:31 DC 04/12/20 12:30 Heparin Sodium (Porcine) (Heparin Sodium) 2,500 unit 1X ONCE IART 04/12/20 12:30 04/12/20 12:31 DC 04/12/20 12:30 Heparin Sodium/ Sodium Chloride (HEPARIN for ARTERIAL LINE FLUSH) 1,000 unit 1X ONCE IART 04/12/20 12:30 04/12/20 12:31 DC 04/12/20 12:30 Midazolam HCl (Versed) 2 mg 1X ONCE IV 04/12/20 12:30 04/12/20 12:31 DC 04/12/20 12:30 Fentanyl Citrate (Fentanyl 2ml Vial) 50 mcg 1X ONCE IV 04/12/20 12:30 04/12/20 12:31 DC 04/12/20 12:30 Iodixanol (Visipaque 320) 100 ml 1X ONCE IART 04/12/20 12:30 04/12/20 12:31 DC 04/12/20 12:30 Bivalirudin (Angiomax) 250 mg 1X ONCE IV 04/12/20 12:30 04/12/20 12:31 DC 04/12/20 12:30 Lidocaine HCl (Xylocaine-Mpf 1% 2ml Vial) 1 ml 1X ONCE INJ 04/12/20 12:30 04/12/20 12:31 DC 04/12/20 12:30 Nitroglycerin (Nitroglycerin) 200 mcg 1X ONCE IART 04/12/20 12:45 04/12/20 12:46 DC 04/12/20 12:45 Bivalirudin (Angiomax) 250 mg 1X ONCE IV 04/12/20 13:00 04/12/20 13:01 DC 04/12/20 13:00 Nitroglycerin (Nitroglycerin) 200 mcg 1X ONCE IART 04/12/20 13:00 04/12/20 13:02 DC 04/12/20 13:00 Ticagrelor (Brilinta) 180 mg 1X ONCE PO 04/12/20 13:15 04/12/20 13:16 DC 04/12/20 13:15 Sodium Chloride 1,000 ml @ 100 mls/hr Q10H IV 04/12/20 13:51 04/12/20 23:50 DC 04/12/20 18:14 Aspirin (Ecotrin) 81 mg [id number] PO 04/13/20 08:00 04/13/20 09:43 Ticagrelor (Brilinta) 90 mg BID PO 04/13/20 09:00 04/13/20 09:43 Atorvastatin Calcium (Lipitor) 40 mg QHS PO 04/12/20 21:00 04/12/20 20:47 Justifications for Admission Other Justification ONOFRE MORA III DO Apr 13, 2020 11:25
--- NOTE | 2020-04-13 11:26 | NUR ---
SS following for discharge planning. SS reviewed pt chart and discussed with pt RN. Pt is from home with spouse and is currently on room air. Pt had cardiac cath with angioplasty on 04/12/2020. Discharge plan is currently home when medically ready. SS will continue to follow for discharge planning.
--- NOTE | 2020-04-13 13:59 | PDOC ---
KATHYA MADERA FIELD TECHNICAL ASSISTANT 04/13/20 1359: CARDIO Progress Notes Date and Time Date of Service 04/13/2020 Time of Evaluation 0930 Subjective Subjective: No Chest Pain, No shortness of breath, No Palpitations Vitals Vitals Vital Signs Date Time Temp Pulse Resp B/P (MAP) Pulse Ox O2 Delivery O2 Flow Rate FiO2 04/13/20 12:57 89 16 96/75 (82) 100 Room Air 04/13/20 11:04 98.1 98.1 04/12/20 13:15 2.0 Weight Weight [ ] Input and Output Intake and Output Intake and Output 04/13/20 07:00 Intake Total 1920 ml Output Total 1000 ml Balance 920 ml Intake Oral 920 ml IV Total 1000 ml Output Urine Total 1000 ml Laboratory Labs Laboratory Tests Test 04/13/20 05:55 White Blood Count 10.4 x10^3/uL (4.0-11.0) Red Blood Count 4.54 x10^6/uL (4.30-5.70) Hemoglobin 15.1 g/dL (13.0-17.5) Hematocrit 43.7 % (39.0-53.0) Mean Corpuscular Volume 96 fL (79-100) Mean Corpuscular Hemoglobin 33 pg (25-35) Mean Corpuscular Hemoglobin Concent 35 g/dL (31-37) Red Cell Distribution Width 14.7 % (11.5-14.5) Platelet Count 113 x10^3/uL (140-400) Neutrophils (%) (Auto) 78 % (31-73) Lymphocytes (%) (Auto) 9 % (24-48) Monocytes (%) (Auto) 13 % (0-9) Eosinophils (%) (Auto) 0 % (0-3) Basophils (%) (Auto) 0 % (0-3) Neutrophils # (Auto) 8.0 x10^3/uL (1.8-7.7) Lymphocytes # (Auto) 0.9 x10^3/uL (1.0-4.8) Monocytes # (Auto) 1.3 x10^3/uL (0.0-1.1) Eosinophils # (Auto) 0.0 x10^3/uL (0.0-0.7) Basophils # (Auto) 0.0 x10^3/uL (0.0-0.2) Sodium Level 139 mmol/L (136-145) Potassium Level 3.6 mmol/L (3.5-5.1) Chloride Level 106 mmol/L (98-107) Carbon Dioxide Level 23 mmol/L (21-32) Anion Gap 10 (6-14) Blood Urea Nitrogen 11 mg/dL (8-26) Creatinine 1.1 mg/dL (0.7-1.3) Estimated GFR (Cockcroft-Gault) 80.3 BUN/Creatinine Ratio 10 (6-20) Glucose Level 107 mg/dL (70-99) Calcium Level 8.5 mg/dL (8.5-10.1) Total Bilirubin 2.0 mg/dL (0.2-1.0) Direct Bilirubin 0.4 mg/dL (0.0-0.2) Aspartate Amino Transf (AST/SGOT) 499 U/L (15-37) Alanine Aminotransferase (ALT/SGPT) 66 U/L (16-63) Alkaline Phosphatase 76 U/L (46-116) Total Protein 6.5 g/dL (6.4-8.2) Albumin 2.9 g/dL (3.4-5.0) Albumin/Globulin Ratio 0.8 (1.0-1.7) Physical Exam HEENT: Neck Supple W Full Motion Chest: Symmetric LUNGS: Clear to Auscultation Heart: S1S2, RRR (SR) Abdomen: Soft N/T Extremities: No Edema, No Calf Tenderness Neurology: alert, oriented, follow commands Assessment Assessment 1. NSTEMI: culprit lesion is ISR to proximal segment of LAD alleviated by aspiration thrombectomy and balloon PTCA. Also PCI/BENITA to mid to distal segment of LAD 2. CAD: Also noted with 70% lesion proximal to previous stent in the RCA 3. HTN: controlled 4. HLP 5. Transaminitis with underlying hepatic steatosis: likely induced by [place]. GI following Recommendations 1. Aspirin 81 mg daily/Ticagrelor 90 mg twice daily 2. TTE. if EF is 35% or less then lifevest 3. Plan for staged PCI to RCA in 2 to 4 weeks. 4. Statin. Continue with low dose coreg, monitor BP response. 5. Lipids and A1C 6. Cardiac rehab. Anticipate DC tomorrow Justicifation of Admission Dx: Justifications for Admission: Justification of Admission Dx: Yes [place]: Acute NSTEMI GELA CRUZ MD 04/13/202121: CARDIO Progress Notes Assessment Assessment Patient seen and examined. Agree with SHINGLE WEAVER's assessment and plan. NSTEMI s/p PCI/BENITA to mid to distal LAD and balloon PTCA to in stent thrombosis of proximal LAD Tele did not show any arrhythmias and patient CP free 2D echo showed EF 25% Agree with [facility] upon DC and plan repeat echo in 3 months to evaluate need for ICD implantation KATHYA MADERA APRN Apr 13, 2020 13:59 GELA CRUZ MD Apr 13, 2020 21:22
[2020-04-13 14:18] LABS: MAGNESIUM 2.1 mg/dL (1.8-2.4)
[2020-04-13 14:22] LABS: CHOLESTEROL/HDL RATIO 2.6
--- NOTE | 2020-04-13 14:50 | CARD ---
MR#: [id number] Date of Study: 04/13/2020 Ordering Physician: GELA CRUZ, Referring Physician: GELA CRUZ, Tech: Riddhi Amaya APPROVED REPORT EXAM: Two-dimensional and M-mode echocardiogram with Doppler and color Doppler. Other Information Quality : AverageHR: 86bpm INDICATION Cardiac Disease: CAD Non STEMI RISK FACTORS Hypertension Hyperlipidemia 2D DIMENSIONS Left Atrium(2D)2.5 (1.6-4.0cm)IVSd1.3 (0.7-1.1cm) Aortic Root(2D)3.7 (2.0-3.7cm)LVDd5.1 (3.9-5.9cm) LVOT Diameter2.2 (1.8-2.4cm)PWd1.2 (0.7-1.1cm) LVDs3.9 (2.5-4.0cm)FS (%) 22.8 % SV55.2 ml Aortic Valve AoV Peak Aniket.97.3cm/sAoV VTI20.5cm AO Peak GR.3.8mmHgLVOT VTI 13.17cm AO Mean GR.4mmHg Mitral Valve MV E Bpwddugc70.3cm/sMV E Peak Gr.2mmHg MV DECEL [id number] A Xjjnjzia41.0cm/s MV E Mean Gr.1mmHgE/A Ratio1.0 TDI Lateral E' P. V5.99cm/sMedial E' P. V5.34cm/s E/Lateral E'7.6E/Medial E'8.5 Tricuspid Valve TR P. Ioepwyov863br/sRAP [id number] TR Peak Gr.01upHmLEOQ65xpRh Pulmonary Vein S1 Fpdvxksp38.1cm/sS2 Ddbnvgqe08.79cm/s D2 Ekslifom17.8cm/sPVa ilqglyse13cfvy LEFT VENTRICLE The left ventricle is normal size. There is mild concentric left ventricular hypertrophy. The systoli c function is severely impaired. The Ejection Fraction is estimated at 25%. There is hypokinesis of t he mid septal wall and akinesis of the distal septal wall and apex. Transmitral Doppler flow pattern is Grade I-abnormal relaxation pattern. RIGHT VENTRICLE The right ventricle is normal size. There is normal right ventricular wall thickness. The right ventr icular systolic function is normal. ATRIA The left atrium size is normal. The right atrium size is normal. The interatrial septum is intact wit h no evidence for an atrial septal defect or patent foramen ovale as noted on 2-D or Doppler imaging. AORTIC VALVE The aortic valve is thickened but opens well. Doppler and Color Flow revealed no significant aortic r egurgitation. There is no significant aortic valvular stenosis. Calculated aortic valve area is 2.49 cm2 with maximum pressure gradient of 6 mmHg and mean pressure gradient of 4 mmHg. MITRAL VALVE The mitral valve is normal in structure and function. There is no evidence of mitral valve prolapse. There is no mitral valve stenosis. Doppler and Color-flow revealed trace mitral regurgitation. TRICUSPID VALVE The tricuspid valve is normal in structure and function. Doppler and Color Flow revealed trace tricus pid regurgitation with an estimated PAP of 29 mmHg. There is no tricuspid valve stenosis. PULMONIC VALVE The pulmonic valve is not well visualized. Doppler and Color Flow revealed trace pulmonic valvular re gurgitation. GREAT VESSELS The aortic root is normal in size. The ascending aorta is normal in size. The IVC was not visualized. PERICARDIAL EFFUSION There is no evidence of significant pericardial effusion. Critical Notification Critical Value: No <Conclusion> The left ventricle is normal size. The systolic function is severely impaired. The Ejection Fraction is estimated at 25%. There is hypokinesis of the mid septal wall and akinesis of the distal septal wall and apex. There is mild concentric left ventricular hypertrophy. Doppler and Color Flow revealed no significant aortic regurgitation. There is no significant aortic valvular stenosis. Doppler and Color-flow revealed trace mitral regurgitation. Doppler and Color Flow revealed trace tricuspid regurgitation with an estimated PAP of 29 mmHg. Signed by : Jorge Luis Aguillon MD Electronically Approved : 04/13/2020 14:49:36
[2020-04-13] MEDS: CARVEDILOL 3.125 MG TABLET. PO SCH (17:00)
[2020-04-13] MEDS: ATORVASTATIN CALCIUM 20 MG TABLET PO SCH (20:15)
[2020-04-14] VITALS (7 sets, daily range): BP systolic 88–107; BP diastolic 61–80
[2020-04-14 03:09] LABS: HEMOGLOBIN A1C 5.6 % (4.8-5.6)
[2020-04-14 04:32] LABS: ALBUMIN 2.9 g/dL (3.4-5.0); DIRECT BILIRUBIN 0.4 mg/dL (0.0-0.2); TOTAL BILIRUBIN 1.9 mg/dL (0.2-1.0)
[2020-04-14] MEDS: CARVEDILOL 3.125 MG TABLET. PO SCH ×2 (08:21→17:00)
[2020-04-14] MEDS: ASPIRIN ENTERIC COATED 81 MG TABLET.DR. PO SCH (08:21)
[2020-04-14] MEDS: TICAGRELOR 90 MG TABLET. PO SCH (08:21)
[2020-04-14] MEDS ORDERED: LISINOPRIL 5 MG TABLET. PO SCH (09:00)
--- NOTE | 2020-04-14 09:14 | PDOC ---
Date of Service: DATE: 04/14/20 TIME: 09:12 Subjective: Subjective: Feels good, going home today. Objective: Objective: Plans to DC later per nurse. Vital Signs: Vital Signs Date Time Temp Pulse Resp B/P (MAP) Pulse Ox O2 Delivery O2 Flow Rate FiO2 04/14/20 08:21 95 106/71 04/14/20 07:57 Room Air 04/14/20 07:00 98.7 12 98 98.7 Labs: Laboratory Tests Test 04/14/20 03:45 Total Bilirubin 1.9 mg/dL Direct Bilirubin 0.4 mg/dL Aspartate Amino Transf (AST/SGOT) 295 U/L Alanine Aminotransferase (ALT/SGPT) 57 U/L Alkaline Phosphatase 75 U/L Total Protein 7.0 g/dL Albumin 2.9 g/dL PE: GEN: NAD LUNGS: CTAB HEART: RRR ABD: NABS, S/ND/NT NEURO/PSYCH: A & O 3 A/P: S/p NSTEMI w/ stent placement and thrombectomy Elevated LFTs - better, suspect 2/2 above Hepatic steatosis -- Dc okay per GI. Recommend rechecking LFTs w/ PCP next week. Consider empiric acid-radiopharmacist w/ use of Brilinta and ASA. Follow-up w/ GI PRN. Justicifation of Admission Dx: Justifications for Admission: Justification of Admission Dx: Yes MA: Acute NSTEMI ALINA JARAMILLO Apr 14, 2020 09:14
[2020-04-14] MEDS ORDERED: CARV3.1210 PO (10:52)
[2020-04-14] MEDS ORDERED: TICA90TA PO (10:52)
[2020-04-14] MEDS ORDERED: ATOR20TA58 PO (10:52)
[2020-04-14] MEDS ORDERED: LISI-338 PO (10:52)
--- NOTE | 2020-04-14 11:09 | NUR ---
SS following up with discharge planning. SS reviewed pt chart and discussed with pt RN. Pt is currently on room air. Discharge orders on the chart for home with self care. [facility] order received. SS phoned and faxed order and clinical to [facility], ; fax [phone]. SS will continue to follow for discharge planning.
--- NOTE | 2020-04-14 11:25 | PDOC ---
[facility] PROGRESS NOTE Date of Service DOS: DATE: 04/14/20 TIME: 11:24 Chief Complaint Chief Complaint Acute [place] History of Present Illness History of Present Illness 04/14/2020 Patient seen and examined Discussed with case management Discussed with RN The plan is to probably discharge later today if okay with cardiology 04/13/2020 Patient seen and examined in the ICU He is awaiting cardiac cath this morning Chart reviewed Discussed with nurse Discussed with case management Vitals/I&O Vitals/I&O: Vital Signs Date Time Temp Pulse Resp B/P (MAP) Pulse Ox O2 Delivery O2 Flow Rate FiO2 04/14/20 11:00 97.6 83 20 97/62 (74) 100 Room Air 97.6 I & O 04/13/20 04/13/20 04/14/20 15:00 23:00 07:00 Intake Total 1120 ml 120 ml Output Total 1200 ml 450 ml 750 ml Balance -1200 ml 670 ml -630 ml Physical Exam General: Alert, Oriented X3, Cooperative, moderate distress Heart: Regular rate Abdomen: Normal bowel sounds, Soft, No tenderness, No hepatosplenomegaly, No masses Extremities: No clubbing, No cyanosis, No edema, Normal pulses, No tenderness/swelling Skin: No rashes, No breakdown, No significant lesion Labs Labs: Laboratory Tests Test 04/14/20 03:45 Total Bilirubin 1.9 mg/dL (0.2-1.0) Direct Bilirubin 0.4 mg/dL (0.0-0.2) Aspartate Amino Transf (AST/SGOT) 295 U/L (15-37) Alanine Aminotransferase (ALT/SGPT) 57 U/L (16-63) Alkaline Phosphatase 75 U/L (46-116) Total Protein 7.0 g/dL (6.4-8.2) Albumin 2.9 g/dL (3.4-5.0) Assessment and Plan Assessmemt and Plan Problems Medical Problems: (1) NSTEMI (non-ST elevated myocardial infarction) Status: Acut Plan Discharge Comment Review of Relevant I have reviewed the following items bhavani (where applicable) has been applied. Medications: Current Medications Medications (Trade) Dose Ordered Sig/Torsten Route PRN Reason Start Time Stop Time Status Last Admin Dose Admin Carvedilol (Coreg) 3.125 mg BIDWMEALS PO 04/13/20 17:00 04/14/20 08:21 Lisinopril (Prinivil) 2.5 mg DAILY PO 04/14/20 09:00 04/14/20 08:21 Justifications for Admission Other Justification ONOFRE MORA III DO Apr 14, 2020 11:25
--- NOTE | 2020-04-14 12:07 | PDOC ---
KATHYA MADERA VICE PRESIDENT EDUCATION 04/14/20 1207: CARDIO Progress Notes Date and Time Date of Service 04/14/2020 Time of Evaluation 0940 Subjective Subjective: No Chest Pain, No shortness of breath, No Palpitations Vitals Vitals Vital Signs Date Time Temp Pulse Resp B/P (MAP) Pulse Ox O2 Delivery O2 Flow Rate FiO2 04/14/20 11:00 97.6 83 20 97/62 (74) 100 Room Air 97.6 Weight Weight [ ] Input and Output Intake and Output Intake and Output 04/14/20 07:00 Intake Total 1240 ml Output Total 2400 ml Balance -1160 ml Intake Oral 1240 ml Output Urine Total 2400 ml Laboratory Labs Laboratory Tests Test 04/14/20 03:45 Total Bilirubin 1.9 mg/dL (0.2-1.0) Direct Bilirubin 0.4 mg/dL (0.0-0.2) Aspartate Amino Transf (AST/SGOT) 295 U/L (15-37) Alanine Aminotransferase (ALT/SGPT) 57 U/L (16-63) Alkaline Phosphatase 75 U/L (46-116) Total Protein 7.0 g/dL (6.4-8.2) Albumin 2.9 g/dL (3.4-5.0) Physical Exam HEENT: Neck Supple W Full Motion Chest: Symmetric LUNGS: Clear to Auscultation Heart: S1S2, RRR (SR) Abdomen: Soft N/T Extremities: No Edema, No Calf Tenderness Neurology: alert, oriented, follow commands Assessment Assessment 1. NSTEMI: culprit lesion is ISR to proximal segment of LAD alleviated by aspiration thrombectomy and balloon PTCA. Also PCI/BENITA to mid to distal segment of LAD 2. CAD: Also noted with 70% lesion proximal to previous stent in the RCA 3. HTN: controlled 4. HLP 5. Transaminitis with underlying hepatic steatosis: likely induced by AR. GI following 6. ICM Recommendations 1. Aspirin 81 mg daily/Ticagrelor 90 mg twice daily 2. Plan for staged PCI to RCA in 2 to 4 weeks. 3. CHF education, 2L FR, daily wt, cardiac rehab, HBPM. Lasix PRN 4. Statin. Continue with low dose coreg and lisinopril, monitor BP response. 5. Lifevest prior to DC for SCD prevention. AICD consideration in 3 months after sufficient optimization. 6. May DC today Justicifation of Admission Dx: Justifications for Admission: Justification of Admission Dx: Yes AR: Acute NSTEMI GELA CRUZ MD 04/14/20 2019: CARDIO Progress Notes Assessment Assessment Patient seen and examined Agree with GERIATRIC NURSE PRACTITIONER's assessment and plan. s/p PCI/BENITA to LAD stable and chest pain free Plan for staged PCI to RCA at later date Tele did not show any significant arrhythmias. DC home today and follow up in one month KATHYA MADERA APRN Apr 14, 2020 12:07 GELA CRUZ MD Apr 14, 2020 20:19
[2020-04-14] MEDS ORDERED: FUROSEMIDE 40 MG TABLET. PO PRN (12:15)
--- NOTE | 2020-04-14 15:21 | NUR ---
SS following up with discharge planning. Marv from [facility] met with pt and reported that Renu ARZOLA would be here with [facility] at 1630. Pt's RN notified.
--- NOTE | 2020-04-14 18:02 | NUR ---
Discharge Note: [facility] Discharge instructions and discharge home medications reviewed with patient and a copy given. All questions have been answered and understanding verbalized. The following instructions and handouts were given: Take home meds as directed. To have LPC after 2 weeks (cardio will update patient regarding schedule) Cardiac rehab Handouts on heart disease, heart failure, cardiac rehab, NSTEMI Watch out for chest pain, severe weakness, Wear lifevest as instructed. Follow up with PCP in a week. Discontinued lines and drains: peripheral IV intact, patient tolerated removal, no complications noted Patient discharged to home with self care via wheelchair accompanied by family members at 1750.
--- NOTE | 2020-04-18 11:34 | DS ---
DATE OF DISCHARGE: 04/14/2020 ADMISSION DIAGNOSIS: Acute myocardial infarction. DISCHARGE DIAGNOSIS: Resolving acute myocardial infarction with status post cardiac catheterization with stents. CONSULTS: Cardiology and GI. HOSPITAL COURSE: The patient is a pleasant middle-aged male who presented with chest pain. He was noted to have a bump in his troponin and EKG changes (his troponin max was 193). He was taken to the cath lab radiological technologist. He received drug-eluting stent to the LAD and the plan is to do another stent to the RCA at later date. Basically over the next few days, he returned to his baseline, we discharged to home. DISPOSITION: Home. ACTIVITY: As tolerated. DIET: Cardiac. MEDICATIONS: Please see the MRAD. TOTAL TIME: 34 minutes. ONOFRE MORA DO DR: SOUTH/sundeep JOB#: [id number] / [id number]
== END 2020-04-14 17:50 | disposition home or self-care (01) | DRG 246 ==
LOC: ER 09:52 → 1 WEST ICU 11:34 → ER 11:45
PROVIDERS: ADMIT Internal Medicine; ATTEND Internal Medicine
PROC: 027034Z Dilation of Coronary Artery, One Artery with Drug-eluting Intraluminal Device, Percutaneous Approach (ICD-10-PCS; principal; 2020-04-12)
PROC: 02C03ZZ Extirpation of Matter from Coronary Artery, One Artery, Percutaneous Approach (ICD-10-PCS; 2020-04-12)
PROC: 4A023N7 Measurement of Cardiac Sampling and Pressure, Left Heart, Percutaneous Approach (ICD-10-PCS; 2020-04-12)
PROC: B2111ZZ Fluoroscopy of Multiple Coronary Arteries using Low Osmolar Contrast (ICD-10-PCS; 2020-04-12)
DX: T82.867A Thrombosis due to cardiac prosthetic devices, implants and grafts, initial encounter (principal); I21.4 Non-ST elevation (NSTEMI) myocardial infarction; I50.43 Acute on chronic combined systolic (congestive) and diastolic (congestive) heart failure; I24.0 Acute coronary thrombosis not resulting in myocardial infarction; T82.855A Stenosis of coronary artery stent, initial encounter; E78.00 Pure hypercholesterolemia, unspecified; E78.5 Hyperlipidemia, unspecified; I10 Essential (primary) hypertension; K76.0 Fatty (change of) liver, not elsewhere classified; Z82.49 Family history of ischemic heart disease and other diseases of the circulatory system; Z95.5 Presence of coronary angioplasty implant and graft; M19.90 Unspecified osteoarthritis, unspecified site; Y83.1 Surgical operation with implant of artificial internal device as the cause of abnormal reaction of the patient, or of later complication, without mention of misadventure at the time of the procedure; D69.6 Thrombocytopenia, unspecified; Z79.899 Other long term (current) drug therapy
CPT/HCPCS: 36415; 37184; 71045; 76705; 80053; 80061; 80076; 82248; 83036; 83690; 83735; 83880; 84443; 84484; 85025; 85610; 85730; 92928; 93005; 93306; 93454; 96374; 99152; 99153; 99291; C1725; C1757; C1769; C1887; C1892; J0583; J1644; J2250; J3010; J3490; Q9967; C1874; G0378

== ENCOUNTER 2021-03-16 10:32 | Emergency (ER) | payer MEDICARE, BC ==
[~2021-03-16] VITALS: Ht 190.5 cm; Wt 83.5 kg
[~2021-03-16 10:32] MED LIST changes: +CARV3.1210 PO; +LISI-517 PO; +TICA90TA PO
--- NOTE | 2021-03-16 12:51 | PHYS DOC ---
Past Medical History Past Medical History: CAD, High Cholesterol, Hypertension, SD ([employer]) Past Surgical History: Other Additional Past Surgical Histo: cardiac stents ([employer]) Smoking Status: Never Smoker Alcohol Use: None Drug Use: None ([employer]) General Adult EDM: Chief Complaint: BLOOD IN URINE HPI: HPI: Patient is a 70 year old male with history of SD, hypertension, CAD, high cholesterol, who presents to the ED today complaining of hematuria that began yesterday. Patient denies any flank pain, nausea, vomiting, abdominal pain. Denies any previous personal history of kidney stones. States he is on a low- dose/baby aspirin. ([employer]) Review of Systems: Review of Systems: Constitutional: Denies fever or chills. [] Eyes: Denies change in visual acuity. [] HENT: Denies nasal congestion or sore throat. [] Respiratory: Denies cough or shortness of breath. [] Cardiovascular: Denies chest pain or edema. [] GI: Denies abdominal pain, nausea, vomiting, bloody stools or diarrhea. [] : Reports hematuria. Denies dysuria. [] Musculoskeletal: Denies back pain or joint pain. [] Integument: Denies rash. [] Neurologic: Denies headache, focal weakness or sensory changes. [] Psychiatric: Denies depression or anxiety. [] ([employer]) Heart Score: C/O Chest Pain: N/A Risk Factors: Risk Factors: DM, Current or recent (<one month) smoker, HTN, HLP, family hi story of CAD, obesity. Risk Scores: Score 0 - 3: 2.5% MACE over next 6 weeks - Discharge Home Score 4 - 6: 20.3% MACE over next 6 weeks - Admit for Clinical Observation Score 7 - 10: 72.7% MACE over next 6 weeks - Early Invasive Strategies ([employer]) Allergies: Allergies: Allergies Coded Allergies Type Severity Reaction Last Updated Verified No Known Drug Allergies 05/06/14 No ([employer]) Physical Exam: PE: Constitutional: Well developed, well nourished, no acute distress, non-toxic appearance. [] HENT: Normocephalic, atraumatic, bilateral external ears normal, oropharynx moist, no oral exudates, nose normal. 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 [] Neck: Normal range of motion, no tenderness, supple, no stridor. [] Cardiovascular:Heart rate regular rhythm, no murmur [] Lungs & Thorax: Bilateral breath sounds clear to auscultation [] Abdomen: Bowel sounds normal, soft, no tenderness, no masses, no pulsatile masses. [] Skin: Warm, dry, no erythema, no rash. [] Back: No tenderness, no CVA tenderness. [] Extremities: No tenderness, no cyanosis, no clubbing, ROM intact, no edema. [] Neurologic: Alert and oriented X 3, normal motor function, normal sensory function, no focal deficits noted. [] Psychologic: Affect normal, judgement normal, mood normal. [] ([employer]) Current Patient Data: Vital Signs: Vital Signs Date Time Temp Pulse Resp B/P (MAP) Pulse Ox O2 Delivery O2 Flow Rate FiO2 03/16/21 11:52 97.5 85 20 155/71 (99) 97 Room Air 97.5 ([employer]) EKG: EKG: [] ([employer]) Radiology/Procedures: Radiology/Procedures: []PROCEDURE: CT ABDOMEN PELVIS WO CONTRAST EXAM: Abdomen and pelvis CT without intravenous contrast. HISTORY: Hematuria. TECHNIQUE: Computed tomographic images of the abdomen and pelvis were obtained without contrast. Multiplanar reformatting was performed. *One or more of the following individualized dose reduction techniques were util ized for this examination: 1. Automated exposure control. 2. Adjustment of the mA and/or kV according to patient size. 3. Use of iterative reconstruction technique. COMPARISON: None. FINDINGS: Evaluation of the lower thorax demonstrates mild emphysema and bronchiectasis. There is posterior dependent and basilar atelectasis. There are few tiny benign-appearing nodules within the right lung base measuring up to 2 mm, likely postinflammatory or postinfectious in etiology. There is gynecomastia. There are is diffusely small hypodense lesions within the liver which are too small to characterize in the absence of contrast. The largest of these measures 10 mm. There is no nephroureterolithiasis or hydronephrosis. There is nonspecific fatty stranding along the inferior pole of the right kidney. No convincing solid or cystic renal lesion is seen. The gallbladder, pancreas, spleen and adrenal glands are unremarkable. There is no appendicitis. There is no bowel obstruction. There are sigmoid diverticula. The aorta is normal in caliber. There is no lymphadenopathy. There is bladder wall thickening. The prostate is mildly enlarged. There is degenerative change involving the spine, primarily at the lumbosacral junction. There is associated severe bilateral foraminal and central canal stenosis at this level. IMPRESSION: 1. Urinary bladder wall thickening. This may be due to chronic outlet obstruction the setting of prostatomegaly or due to cystitis. Correlate with urinalysis. 2. No evidence of of nephroureterolithiasis or hydronephrosis. There is a small focus of nonspecific fatty stranding along the lower pole of the right kidney. No convincing solid lesion is seen. 3. Sigmoid diverticulosis. 4. Tiny clustered nodules within the right lung base, the appearance of which favors postinflammatory or postinfectious etiology. Electronically signed by: Mavis Ruiz MD (03/16/2021 2:00 PM) [id number] DICTATED and SIGNED BY: MAVIS RUIZ MD DATE: 03/16/21 [id number] 0 (CALI JACOBO APRN) Course & Med Decision Making: Course & Med Decision Making Pertinent Labs and Imaging studies reviewed. (See chart for details) This is 70-year-old male patient presented to the ED today with hematuria that began yesterday. CBC with a normal WBC, normal hemoglobin and hematocrit. CMP with creatinine of 1.5, BUN of 15. Patient had similar kidney function from previous labs. Urine noted for large amount of blood and moderate amount of leukocytes. CT of the abdomen and pelvis was noted for cystitis Patient was given Rocephin 1 g in the ED. Discharged on Cipro. He is afebrile. He was instructed to follow-up with the urologist and PCP as an outpatient. (CALI JACOBO APRN) Course & Med Decision Making I have participated in the care of this patient and I have reviewed and agree with all pertinent clinical information above including history, exam, and recommendations. Jyoti Larsen DO (JYOTI LARSEN Disclaimer: Eric Disclaimer: This electronic medical record was generated, in whole or in part, using a voice recognition dictation system. (CALI JACOBO APRN) Departure Departure Impression: Primary Impression: Acute cystitis Qualified Codes: N30.01 - Acute cystitis with hematuria Additional Impression: Renal insufficiency Disposition: HOME / SELF CARE / HOMELESS Condition: STABLE Referrals: ZANDRA GRIDER APRN (PCP) Follow-up in a week Patient Instructions: Urinary Tract Infection Additional Instructions: You were evaluated in the emergency room and noted to have cystitis/bladder infection. Complete the antibiotics we sent to your pharamcy. Push fluids. Follow-up with your own doctor and the urologist of your choice in 1 week Scripts Ciprofloxacin Hcl (CIPRO) 500 Mg Tablet 1 TAB PO BID for 7 Days, #14 TAB 0 Refills Prov: CALI JACOBO APRN 03/16/21 CALI JACOBO APRN Mar 16, 2021 12:51 JYOTI LARSEN DO Mar 16, 2021 15:25
[2021-03-16 13:12] LABS: BILIRUBIN,URINE SMALL (NEG); CLARITY,URINE CLOUDY; NITRITE,URINE NEGATIVE (NEG); PROTEIN,URINE 100 mg/dL (NEG-TRACE)
[2021-03-16 13:20] LABS: COLOR,URINE BROWN
[2021-03-16 13:21] LABS: BASO % 0 % (0-3); EOS % 0 % (0-3); HEMATOCRIT 46.2 % (39.0-53.0); HEMOGLOBIN 15.9 g/dL (13.0-17.5); LYMPH % 15 % (24-48); MEAN CORPUSCULAR HEMOGLOBIN 33 pg (25-35); MEAN CORPUSCULAR HGB CONC 34 g/dL (31-37); MEAN CORPUSCULAR VOLUME 96 fL (79-100); MONO # 0.6 x10^3/uL (0.0-1.1); MONO % 9 % (0-9); NEUT # 5.2 x10^3/uL (1.8-7.7); NEUT % 76 % (31-73); PLATELET COUNT 195 x10^3/uL (140-400); RED BLOOD COUNT 4.79 x10^6/uL (4.30-5.70); RED CELL DISTRIBUTION WIDTH 14.8 % (11.5-14.5); WHITE BLOOD COUNT 6.9 x10^3/uL (4.0-11.0)
[2021-03-16 13:21] LABS: BACTERIA,URINE MODERATE /HPF (0-FEW); RBC,URINE >40 /HPF (0-2)
[2021-03-16 13:22] LABS: HYALINE CASTS, URINE OCCASIONAL /HPF
[2021-03-16 13:31] LABS: CALCIUM 9.5 mg/dL (8.5-10.1); CREATININE 1.5 mg/dL (0.7-1.3); POTASSIUM 3.7 mmol/L (3.5-5.1)
[2021-03-16 13:36] LABS: ALBUMIN 3.6 g/dL (3.4-5.0); ALBUMIN/GLOBULIN RATIO 0.9 (1.0-1.7); TOTAL BILIRUBIN 0.6 mg/dL (0.2-1.0); TOTAL PROTEIN 7.8 g/dL (6.4-8.2)
--- NOTE | 2021-03-16 14:02 | RAD ---
EXAM: Abdomen and pelvis CT without intravenous contrast. HISTORY: Hematuria. TECHNIQUE: Computed tomographic images of the abdomen and pelvis were obtained without contrast. Mult iplanar reformatting was performed. *One or more of the following individualized dose reduction techniques were utilized for this examina tion: 1. Automated exposure control. 2. Adjustment of the mA and/or kV according to patient size. 3. Use of iterative reconstruction technique. COMPARISON: None. FINDINGS: Evaluation of the lower thorax demonstrates mild emphysema and bronchiectasis. There is pos terior dependent and basilar atelectasis. There are few tiny benign-appearing nodules within the righ t lung base measuring up to 2 mm, likely postinflammatory or postinfectious in etiology. There is gamb cutter ecomastia. There are is diffusely small hypodense lesions within the liver which are too small to ernesto racterize in the absence of contrast. The largest of these measures 10 mm. There is no nephroureterolithiasis or hydronephrosis. There is nonspecific fatty stranding along the inferior pole of the right kidney. No convincing solid or cystic renal lesion is seen. The gallbladde r, pancreas, spleen and adrenal glands are unremarkable. There is no appendicitis. There is no bowel obstruction. There are sigmoid diverticula. The aorta is normal in caliber. There is no lymphadenopat hy. There is bladder wall thickening. The prostate is mildly enlarged. There is degenerative change i nvolving the spine, primarily at the lumbosacral junction. There is associated severe bilateral gerson inal and central canal stenosis at this level. IMPRESSION: 1. Urinary bladder wall thickening. This may be due to chronic outlet obstruction the setting of pros tatomegaly or due to cystitis. Correlate with urinalysis. 2. No evidence of of nephroureterolithiasis or hydronephrosis. There is a small focus of nonspecific fatty stranding along the lower pole of the right kidney. No convincing solid lesion is seen. 3. Sigmoid diverticulosis. 4. Tiny clustered nodules within the right lung base, the appearance of which favors postinflammatory or postinfectious etiology. Electronically signed by: Mavis Pop MD (03/16/2021 2:00 PM) [id number]
[2021-03-16] MEDS ORDERED: cefTRIAXone IV Push 1 GM VIAL. IVP ONE (14:30)
[2021-03-16] MEDS ORDERED: cefTRIAXone IM 1 GM VIAL IM ONE (14:30)
[2021-03-16] MEDS ORDERED: LIDOCAINE 1% PF 2 ML VIAL. INJ ONE (14:30)
[2021-03-16] MEDS ORDERED: CIPR500T94 PO (15:16)
[2021-03-16 16:00] VITALS: BP 126/89
== END 2021-03-16 16:30 | disposition home or self-care (01) ==
LOC: ER 10:32
DX: N30.01 Acute cystitis with hematuria (principal); N28.9 Disorder of kidney and ureter, unspecified; E78.00 Pure hypercholesterolemia, unspecified; I10 Essential (primary) hypertension; I25.10 Atherosclerotic heart disease of native coronary artery without angina pectoris; I25.2 Old myocardial infarction; Z95.5 Presence of coronary angioplasty implant and graft
CPT/HCPCS: 36415; 74176; 80053; 81001; 85025; 87086; 96372; 99285; J0696; J3490